=== PATIENT | female | born 1985 | race African-American/Black ===

== ENCOUNTER 2020-09-20 07:34 | Emergency (ER) | payer OTHER, SELFPAY ==
--- NOTE | ~2020-09-20 | XR_ITS ---
EXAMINATION: XR CHEST CLINICAL INFORMATION: Right-sided chest pain COMPARISON: Chest x-ray March 31, 2019 TECHNIQUE: Frontal view of the chest was obtained. FINDINGS: Cardiac silhouette is normal in size. The lungs are well aerated. There is no lobar consolidation. No pleural effusion or pneumothorax. No gross osseous abnormality. XR/XR chest 1V IMPRESSION: No acute pulmonary pathology.
[2020-09-20 07:52] VITALS: BP 109/72; PULSE 70; RESP 16; TEMP 36.6; O2SAT 100; BMI 26.5
--- NOTE | 2020-09-20 08:31 | ECG_ITS ---
Test Reason : RIB PAIN Blood Pressure : / mmHG Vent. Rate : 050 BPM Atrial Rate : 050 BPM P-R Int : 142 ms QRS Dur : 088 ms QT Int : 430 ms P-R-T Axes : 031 057 -07 degrees QTc Int : 392 ms Sinus bradycardia Nonspecific ST and T wave abnormality Abnormal ECG No previous ECGs available Referred By: Edy Horton Electronically Signed By:VIJAY MCMAHAN MD
--- NOTE | 2020-09-20 08:31 | ED_ITS ---
HPI - General Adult General Chief complaint: General Medical Stated complaint: severe rib pain Time Seen by Provider: 09/20/20 08:26 Source: patient Mode of arrival: ambulatory Limitations: no limitations History of Present Illness HPI narrative: this is a 35 years old of female presented to the ED complaining of right-sided pleuritic chest pain for about 10 days Onset (ago): day(s) (10) Location: chest ( right) Radiation: non-radiation Severity: moderate Quality: aching Pain Consistency: constant Exacerbating factors: none Related Data Allergies Allergy/AdvReac Type Severity Reaction Status Date / Time diphenhydramine Allergy Unknown SEIZURE Unverified 12/05/19 18:37 [From BENADRYL] tramadol [TRAMADOL] Allergy Unknown LOCKS UP Unverified 12/05/19 18:37 INSIDES Review of Systems Review of Systems: Yes all other systems are reviewed and are negative Cardiovascular: Cardiovascular: Reports no additional cardiovascular complaints Respiratory: Respiratory: Reports no additional respiratory complaints Gastrointestinal: Gastrointestinal: Reports no additional gastrointestinal complaints PMFSH Past Medical History Surgical History H/O lumpectomy History of cholecystectomy Social History Social History Advance Directives: No Advance Directives Information Provided: No Patient : No Physical Exam Vital Signs: Vital Signs: Last Vital Signs Temp 97.9 F 09/20/20 07:52 Pulse 70 09/20/20 07:52 Resp 16 09/20/20 07:52 BP 109/72 09/20/20 07:52 Pulse Ox 100 09/20/20 07:52 Body Mass Index 26.5 Const: General: cooperative and comfortable Orientation/consciousness: oriented to person, oriented to place, oriented to time and patient oriented x3 HENMT: Head: Yes normal to inspection and Yes No palpable skull fracture pr esent Eyes: General: appearance normal, both eyes and all related structures Periorbital: periorbital findings normal Pupils: Pupils normal by confrontation EOM: EOMs intact bilaterally Neck: Neck: Yes normal visual inspection and Yes full ROM Chest: Chest palpation & inspection: normal inspection of the chest and other ( tenderness in the right lower chest) Resp: Effort & Inspection: normal respiratory effort and able to speak in complete sentences Cardio: Jugular venous distension: no JVD Rate: regular rate Rhythm: regular rhythm Heart sounds: S1 normal heart sound present GI: Inspection: Yes normal to inspection Palpation (GI): Soft to palpation, not firm, nontender and no guarding Skin: Lesions: no lesions Rashes: no rashes Neuro: General: oriented to person, oriented to place, oriented to time, patient oriented x3 and gait normal Extrem: General: Yes normal to inspection Medical Decision Making Lab Data Lab results reviewed: Yes I reviewed the patient's lab results. Result diagrams: 09/20/20 08:41 09/20/20 08:41 Labs: Lab Results 09/20/20 09/20/20 09/20/20 Range/Units 08:41 08:41 08:41 WBC 5.0 (4.8-10.8) X10*3/uL RBC 4.10 L (4.20-5.50) X10*6/uL Hgb 12.3 (12.0-16.0) g/dl Hct 36.9 L (37-47) % MCV 90.0 (80-98) fL MCH 30.0 (27.0-33.0) pg MCHC 33.3 (31.0-35.0) g/dl RDW 11.9 (11.0-16.0) % Plt Count 322 (160-400) X10*3/uL MPV 8.8 L (9.4-12.3) fL Immature Gran % (Auto) 0.0 (0.0-0.4) % Neut % (Auto) 37.1 L (45-73) % Lymph % (Auto) 52.3 H (20-40) % [place] % (Auto) 7.6 (2-11) % Eos % (Auto) 2.4 (0-4) % Baso % (Auto) 0.6 (0-2) % Lymph # (Auto) 2.6 (1.2-4.9) X10*3/uL [place] # (Auto) 0.4 (0.1-1.2) X10*3/uL Eos # (Auto) 0.1 (0.0-0.4) X10*3/uL Baso # (Auto) 0.0 (0.0-0.2) X10*3/uL Abs Immat Gran (auto) 0.00 (0.00-0.03) X10*3/uL Absolute Neuts (auto) 1.9 L (2.0-8.3) X10*3/uL Absolute Nucleated RBC 0.000 (0.0-0.012) X10*3/uL Nucleated RBC % (auto) 0.0 (0.0-0.2) /100WBC D-Dimer < 200 NG/ML Sodium 137 (135-145) mmol/L Potassium 4.8 (3.3-5.1) mmol/L Chloride 107 (96-108) mmol/L Carbon Dioxide 23 (22-29) mmol/L Anion Gap 12 (12-20) BUN 12 (9-16) mg/dL Creatinine 0.82 (0.5-1.4) mg/dL Estim Creat Clear Calc 90.4 Estimated GFR > 60 Random Glucose 90 (60-115) mg/dL Calcium 8.8 (8.4-10.2) mg/dL Total Bilirubin 0.2 (0.0-1.0) mg/dL AST 17 (5-31) U/L ALT 12 (0-31) U/L Alkaline Phosphatase 69 (39-117) U/L Troponin I High Sens (<3.5-17.0) ng/L Total Protein 6.7 (6.5-8.0) g/dL Albumin 3.8 (3.5-5.0) g/dL Beta HCG, Quant < 2 mIU/mL 09/20/20 Range/Units 08:41 WBC (4.8-10.8) X10*3/uL RBC (4.20-5.50) X10*6/uL Hgb (12.0-16.0) g/dl Hct (37-47) % MCV (80-98) fL MCH (27.0-33.0) pg MCHC (31.0-35.0) g/dl RDW (11.0-16.0) % Plt Count (160-400) X10*3/uL MPV (9.4-12.3) fL Immature Gran % (Auto) (0.0-0.4) % Neut % (Auto) (45-73) % Lymph % (Auto) (20-40) % [place] % (Auto) (2-11) % Eos % (Auto) (0-4) % Baso % (Auto) (0-2) % Lymph # (Auto) (1.2-4.9) X10*3/uL [place] # (Auto) (0.1-1.2) X10*3/uL Eos # (Auto) (0.0-0.4) X10*3/uL Baso # (Auto) (0.0-0.2) X10*3/uL Abs Immat Gran (auto) (0.00-0.03) X10*3/uL Absolute Neuts (auto) (2.0-8.3) X10*3/uL Absolute Nucleated RBC (0.0-0.012) X10*3/uL Nucleated RBC % (auto) (0.0-0.2) /100WBC D-Dimer NG/ML Sodium (135-145) mmol/L Potassium (3.3-5.1) mmol/L Chloride (96-108) mmol/L Carbon Dioxide (22-29) mmol/L Anion Gap (12-20) BUN (9-16) mg/dL Creatinine (0.5-1.4) mg/dL Estim Creat Clear Calc Estimated GFR Random Glucose (60-115) mg/dL Calcium (8.4-10.2) mg/dL Total Bilirubin (0.0-1.0) mg/dL AST (5-31) U/L ALT (0-31) U/L Alkaline Phosphatase (39-117) U/L Troponin I High Sens < 3.5 (<3.5-17.0) ng/L Total Protein (6.5-8.0) g/dL Albumin (3.5-5.0) g/dL Beta HCG, Quant mIU/mL Imaging Data Chest x-ray: Radiologist's impression: EXAMINATION: XR CHEST CLINICAL INFORMATION: Right-sided chest pain COMPARISON: Chest x-ray March 31, 2019 TECHNIQUE: Frontal view of the chest was obtained. FINDINGS: Cardiac silhouette is normal in size. The lungs are well aerated. There is no lobar consolidation. No pleural effusion or pneumothorax. No gross osseous abnormality. XR/XR chest 1V IMPRESSION: No acute pulmonary pathology. ECG Data Attestation: I personally reviewed and interpreted this ECG as follows: Interpretation: NORMAL SINUS RHYTHM RATE OF 50 NO ISCHEMIC CHANGES Discharge Plan Discharge Clinical Impression: Chest wall pain Patient Disposition: Home, Self-Care Instructions: Chest Wall Pain (ED) Additional Instructions: FOLLOW-UP WITH YOUR PRIMARY CARE PHYSICIAN CONTINUE THE IBUPROFEN EVERY 8 HOURS NEEDED, YOU CHEST X-RAY WAS NORMAL OF THE BLOOD WORK AND ELECTROCARDIOGRAM WERE NORMAL
[2020-09-20] MEDS: Ketorolac Tromethamine 60 MG/2 ML VIAL IM (08:42)
[2020-09-20 08:45] LABS: MANUAL DIFF FLAG NO
[2020-09-20 08:46] LABS: Basophils Percent Auto 0.6 % (0-2); Eosinophils Absolute Auto 0.1 X10*3/uL (0.0-0.4); Eosinophils Percent Auto 2.4 % (0-4); Hematocrit 36.9 % (37-47); Hemoglobin 12.3 g/dl (12.0-16.0); Lymphocytes Absolute Auto 2.6 X10*3/uL (1.2-4.9); Lymphocytes Percent Auto 52.3 % (20-40); Mean Corpuscular HGB Conc 33.3 g/dl (31.0-35.0); Mean Platelet Volume 8.8 fL (9.4-12.3); Monocytes Absolute Auto 0.4 X10*3/uL (0.1-1.2); Monocytes Percent Auto 7.6 % (2-11); Neutrophils Absolute Auto 1.9 X10*3/uL (2.0-8.3); Neutrophils Percent Auto 37.1 % (45-73); Platelet Count 322 X10*3/uL (160-400); Red Cell Distribution Width 11.9 % (11.0-16.0)
[2020-09-20 09:11] LABS: D Dimer < 200 NG/ML
[2020-09-20 09:16] LABS: Alanine Aminotransferase 12 U/L (0-31); Albumin Level 3.8 g/dL (3.5-5.0); Alkaline Phosphatase 69 U/L (39-117); Aspartate Amino Transferase 17 U/L (5-31); Bilirubin Total 0.2 mg/dL (0.0-1.0); Blood Urea Nitrogen 12 mg/dL (9-16); Calcium 8.8 mg/dL (8.4-10.2); Creatinine Clr Calc Pharmacy 90.4; Estimated Glomerular Filt Rate > 60; Glucose Random 90 mg/dL (60-115); Total Protein 6.7 g/dL (6.5-8.0)
[2020-09-20 09:18] LABS: Troponin-I High Sensitivity < 3.5 ng/L (<3.5-17.0)
[2020-09-20 09:21] LABS: HCG Quantitative < 2 mIU/mL
[2020-09-20 09:26] LABS: Anion Gap 12 (12-20); Carbon Dioxide 23 mmol/L (22-29); Chloride 107 mmol/L (96-108); Potassium 4.8 mmol/L (3.3-5.1); Sodium 137 mmol/L (135-145)
== END 2020-09-20 09:39 | disposition home or self-care (01) ==
PROVIDERS: Emergency Provider Emergency Medicine
DX: R07.89 Other chest pain (principal)
CPT/HCPCS: 36415; 71045; 80053; 84484; 84702; 85025; 85379; 93005; 96372; 99284; J1885

== ENCOUNTER 2022-05-09 07:26 | Emergency (ER) | payer SELFPAY ==
--- NOTE | ~2022-05-09 | US_ITS ---
EXAMINATION: US PELVIS CLINICAL INFORMATION: Right suprapubic pain. Question TOA versus torsion COMPARISON: None TECHNIQUE: Ultrasound of the pelvis is performed using both transabdominal and transvaginal transducers along with Doppler. Transvaginal imaging is performed due to inadequate visualization transabdominally. FINDINGS: Uterus: The uterus is anteverted and measures 8.2 x 4.5 x 5.3 cm. No cervical abnormality appreciated. The double wall endometrial thickness is 5 mm. Within the endometrium in the body of the uterus there is question of an echogenic 9 x 5 x 6 mm structure with same echogenicity of the endometrium and difficult to truly tell if this is a polyp or artifact with visualization of the endometrium. No history of menorrhagia is given. The uterus is smooth in contour and has normal myometrial echogenicity. No visible fibroid. Adnexa: Both ovaries are visualized. There is normal color flow to the adnexa. There is no ovarian torsion. There is no pelvic ascites or fluid collection. Right ovary measures 3.3 x 1.3 x 1.6 cm. Volume 3.6 mL. There is a simple appearing cyst present measuring 1.8 cm in largest dimension for which follow-up is not required. No adnexal abnormality is appreciated with no evidence of tubo-ovarian abscess. Left ovary measures 2.6 x 1.6 x 1.5 cm. Volume of 3.3 mL. No evidence of tubo-ovarian abscess. No adnexal abnormality appreciated. US/US pelvic and transvaginal IMPRESSION: No evidence of ovarian torsion or tubo-ovarian abscess. Question possible 9 mm endometrial polyp versus artifact.
--- NOTE | ~2022-05-09 | US_ITS ---
EXAMINATION: US PELVIS CLINICAL INFORMATION: Right suprapubic pain. Question TOA versus torsion COMPARISON: None TECHNIQUE: Ultrasound of the pelvis is performed using both transabdominal and transvaginal transducers along with Doppler. Transvaginal imaging is performed due to inadequate visualization transabdominally. FINDINGS: Uterus: The uterus is anteverted and measures 8.2 x 4.5 x 5.3 cm. No cervical abnormality appreciated. The double wall endometrial thickness is 5 mm. Within the endometrium in the body of the uterus there is question of an echogenic 9 x 5 x 6 mm structure with same echogenicity of the endometrium and difficult to truly tell if this is a polyp or artifact with visualization of the endometrium. No history of menorrhagia is given. The uterus is smooth in contour and has normal myometrial echogenicity. No visible fibroid. Adnexa: Both ovaries are visualized. There is normal color flow to the adnexa. There is no ovarian torsion. There is no pelvic ascites or fluid collection. Right ovary measures 3.3 x 1.3 x 1.6 cm. Volume 3.6 mL. There is a simple appearing cyst present measuring 1.8 cm in largest dimension for which follow-up is not required. No adnexal abnormality is appreciated with no evidence of tubo-ovarian abscess. Left ovary measures 2.6 x 1.6 x 1.5 cm. Volume of 3.3 mL. No evidence of tubo-ovarian abscess. No adnexal abnormality appreciated. US/US pelvic ovarian doppler IMPRESSION: No evidence of ovarian torsion or tubo-ovarian abscess. Question possible 9 mm endometrial polyp versus artifact.
[2022-05-09 07:46] VITALS: BP 112/77; PULSE 77; RESP 18; TEMP 36.2; O2SAT 100; BMI 24.3
[2022-05-09 08:00] LABS: Appearance Urine Clear; Color Urine Yellow; Glucose Urine UA Negative (Negative); Leukocyte Esterase Urine Trace (Negative); Nitrite Urine Negative (Negative); Specific Gravity - Urine >= 1.030 (1.005-1.025); UMIC TRIGGER UACC YES; Urine Blood Negative (Negative); Urine Ketones Trace mg/dL (Negative); Urine Protein Negative (Neg-Trace)
[2022-05-09 08:10] LABS: Bacteria Urine 1+ (None Seen); Hyaline Casts Urine 0-2 /LPF (0-2); RBC Urine 0-2 /HPF (0-2); WBC Urine 0-5 /HPF (0-5)
--- NOTE | 2022-05-09 08:56 | ED_ITS ---
HPI - Female Genitourinary General Chief complaint: Urogenital-Female Stated complaint: UTI? Time Seen by Provider: 05/09/22 08:53 Source: patient Mode of arrival: ambulatory History of Present Illness HPI Narrative: 36-year-old female with a past medical history of ovarian cyst presenting to the ED complaining of right lower abdominal pain times 3-4 days with associated urinary pressure/dysuria, & frequency. Reports pain is nonradiating. Denies fever, chills, nausea vomiting, abnormal vaginal discharge/bleeding, flank pain MD elicited complaint: dysuria and UTI Onset (ago): day(s) Related Data Allergies Allergy/AdvReac Type Severity Reaction Status Date / Time diphenhydramine Allergy Unknown SEIZURE Verified 05/09/22 07:48 [From BENADRYL] tramadol [TRAMADOL] Allergy Unknown LOCKS UP Verified 05/09/22 07:48 INSIDES Review of Systems Review of Systems: Constitutional: No Fever, No Chills, No Fatigue, No Malaise ENT/Mouth: No Ear Pain, No Nasal Congestion, No sore throat, No Rhinorrhea, No Swallowing Difficulty Eyes: No Eye Pain, No Swelling, No Redness, No Vision Changes Cardiovascular: No Chest Pain, No SOB, No Edema, No Palpitations Respiratory: No Cough, No Sputum, No Dyspnea Gastrointestinal: No Nausea, No Vomiting, No Diarrhea, No Constipation, + Abdominal pain Genitourinary: No irregular bleeding, + Dysuria, + Urinary Frequency, No Hematuria, No Flank Pain, No Urinary Flow Changes, No Hesitancy Musculoskeletal: No joint pain, No Myalgias, No Joint Swelling Skin: No Skin Lesions, No rash Neuro: No Weakness, No Numbness,No Headache Yes all other systems are reviewed and are negative Constitutional: Constitutional: Reports as per [facility] Past Medical History Attestation statement: The following information was validated with the patient. Surgical History H/O lumpectomy History of cholecystectomy Social History Social History Alcohol intake: current Alcohol intake frequency: holidays/special occasions on ly Smoked in Last 30 Days: No Use of substances other than those prescribed or required for medical reasons: Yes Substance Use Type: Marijuana Substance Use Frequency: Occasionally Advance Directives: No Advance Directives Information Provided: No Physical Exam Vital Signs: Vital Signs: Last Vital Signs Temp 97.1 F 05/09/22 10:40 Pulse 57 05/09/22 10:40 Resp 14 05/09/22 10:40 BP 118/66 05/09/22 10:40 Pulse Ox 99 05/09/22 10:40 O2 Del Method 05/09/22 10:40 BMI result Body Mass Index 24.3 Const: General: cooperative, healthy appearing and no acute distress Orientation/consciousness: patient oriented x3 Limitations: no limitations HEENT: Head: Yes normal to inspection and Yes atraumatic Ears: hearing grossly normal bilaterally General nose exam: Normal external nose present Face and sinus: Yes normal facial exam Eyes: General: appearance normal, both eyes and all related structures EOM: EOMs intact bilaterally Neck: Neck: Yes normal visual inspection and Yes no meningeal signs Resp: Effort & Inspection: normal respiratory effort and no respiratory distress Auscultation: clear to auscultation bilaterally Cardio: Rate: regular rate Heart sounds: S1 normal heart sound present and S2 normal heart sound present GI: Inspection: Yes normal to inspection Palpation (GI): Soft to palpation, Tenderness to palpation present (GI) suprapubicly (right); with no rebound tenderness, no guarding and not rigid : General: Yes no CVA tenderness OB/external & speculum: Deferred OB/ external & speculum exam Back/Spine/Pelvis: Back: no CVA tenderness Skin: Rashes: no rashes Wounds: no wounds Neuro: General: patient oriented x3, tone normal and no meningeal signs Gait exam (Neuro): Normal gait present Extrem: General: Yes normal to inspection Course Course Course Narrative: -1125--labs unremarkable. UA negative. US pelvic and transvaginal IMPRESSION: No evidence of ovarian torsion or tubo-ovarian abscess. ? Question possible 9 mm endometrial polyp versus artifact. >> on re-evaluation patient reports symptomatic improvement. Results discussed with patient including worrisome signs and symptoms and strict return precautions, and when to return to the emergency department. They verbalized understanding and feel safe for discharge at this time. Medications Administered Discontinued Medications Generic Name Dose Route Start Last Admin Trade Name Freq PRN Reason Stop Dose Admin Ketorolac Tromethamine 30 mg 05/09/22 10:26 05/09/22 10:33 Ketorolac Tromethamine 30 Mg/Ml Vial IM 05/09/22 10:27 30 mg ONCE ONE Administration Medical Decision Making Medical Decision Making [facility] Narrative: 36-year-old female with a past medical history of ovarian cyst presenting to the ED complaining of right lower abdominal pain times 3-4 days with associated urinary pressure/dysuria, & frequency. On exam vital signs stable, NAD, nontoxic appearing, abdomen soft with right-sided suprapubic tenderness, no rebound or guarding, no CVA tenderness. Concern for UTI vs ovarian cyst. Ovarian torsion/TOA on differential however lower. Lower suspicion for appendicitis with location of pain. Unlikely renal stone/pyelo Plan: Labs, UA, pelvic ultrasound, re-evaluate Please refer to course for remaining clinical decision making, interpretation of labs/imaging results, and discussions with consultants and/or family members. Differential Diagnosis Differential Diagnoses: The differential diagnosis associated with the presentation includes as above Lab Data [facility] Lab Attestation statement: I reviewed the patient's lab results. 05/09/22 09:13 05/09/22 09:13 Labs: Lab Results 05/09/22 05/09/22 05/09/22 Range/Units 07:54 09:13 09:13 WBC 4.7 L (4.8-10.8) X10*3/uL RBC 4.42 (4.20-5.50) X10*6/uL Hgb 13.1 (12.0-16.0) g/dl Hct 39.0 (37.0-47.0) % MCV 88.2 (80.0-98.0) fL MCH 29.6 (27.0-33.0) pg MCHC 33.6 (31.0-35.0) g/dl RDW 12.0 (11.0-16.0) % Plt Count 366 (160-400) X10*3/uL MPV 8.8 L (9.4-12.3) fL Immature Gran % (Auto) 0.2 (0.0-0.4) % Neut % (Auto) 34.4 L (45-73) % Lymph % (Auto) 50.8 H (20-40) % [place] % (Auto) 9.0 (2-11) % Eos % (Auto) 4.5 H (0-4) % Baso % (Auto) 1.1 (0-2) % Lymph # (Auto) 2.4 (1.2-4.9) X10*3/uL [place] # (Auto) 0.4 (0.1-1.2) X10*3/uL Eos # (Auto) 0.2 (0.0-0.4) X10*3/uL Baso # (Auto) 0.1 (0.0-0.2) X10*3/uL Abs Immat Gran (auto) 0.01 (0.00-0.03) X10*3/uL Absolute Neuts (auto) 1.6 L (2.0-8.3) x10*3/uL Absolute Nucleated RBC 0.000 (0.0-0.012) X10*3/uL Nucleated RBC % (auto) 0.0 (0.0-0.2) /100WBC Sodium 138 (135-145) mmol/L Potassium 4.0 (3.3-5.1) mmol/L Chloride 103 (96-108) mmol/L Carbon Dioxide 26 (22-29) mmol/L Anion Gap 13 (12-20) BUN 12 (9-16) mg/dL Creatinine 0.82 (0.5-1.4) mg/dL Estim Creat Clear Calc 79.9 Estimated GFR > 60 Random Glucose 96 (60-115) mg/dL Calcium 9.6 D (8.4-10.2) mg/dL Total Bilirubin 0.5 (0.0-1.0) mg/dL Direct Bilirubin < 0.2 (0.0-0.5) mg/dL AST 15 (5-31) U/L ALT 12 (0-31) U/L Alkaline Phosphatase 56 (39-117) U/L Total Protein 7.1 (6.5-8.0) g/dL Albumin 4.1 (3.5-5.0) g/dL Lipase 33 (8-78) U/L Beta HCG, Quant < 2 mIU/mL Urine Color Yellow Urine Appearance Clear Urine pH 6.0 (5.0-9.0) Ur Specific [place] >= 1.030 H (1.005-1.025) Urine Protein Negative (Neg-Trace) mg/dL Urine Glucose (UA) Negative (Negative) mg/dL Urine Ketones Trace (Negative) mg/dL Urine Blood Negative (Negative) Urine Nitrite Negative (Negative) Ur Leukocyte Esterase Trace H (Negative) Urine RBC 0-2 (0-2) /HPF Urine WBC 0-5 (0-5) /HPF Ur Squamous Epith Cells 6-10 (0-2) /HPF Urine Bacteria 1+ (None Seen) Hyaline Casts 0-2 (0-2) /LPF Radiology Impression Discussion of test interpretation with radiology: I have reviewed the radiologist's reading. Discharge Plan Discharge Clinical Impression: Abdominal pain, suprapubic, Ovarian cyst, Endometrial polyp Patient Disposition: Home, Self-Care Instructions: Abdominal Pain (ED), Endometrial Polyps (DC) Additional Instructions: Your blood work and urine were reassuring. Her ultrasound shows a small right ovarian cyst as well as a possible endometrial polyp. Practice a bland diet If her symptoms persist or worsen, pain becomes unbearable, and nausea/vomiting or fever return to the ED Referrals: [facility] [Provider Group] Kunal Nuno MD [Emergency Provider] - Interventions: ED Discharge Assessment Last Done: 05/09/22 11:53 Discharge Date/Time: 05/09/22 11:53
[2022-05-09 09:06] VITALS: BP 101/68; PULSE 65; RESP 16; TEMP 36.4; O2SAT 100
--- NOTE | 2022-05-09 09:09 | PC.NURSE ---
pt AOx3, vss. reports RLQ pressure/pain 09/26. will continue to monitor.
[2022-05-09 09:16] LABS: MANUAL DIFF FLAG NO
[2022-05-09 09:18] LABS: Basophils Absolute Auto 0.1 X10*3/uL (0.0-0.2); Basophils Percent Auto 1.1 % (0-2); Eosinophils Absolute Auto 0.2 X10*3/uL (0.0-0.4); Eosinophils Percent Auto 4.5 % (0-4); Hemoglobin 13.1 g/dl (12.0-16.0); Imm Gran Abs Auto 0.01 X10*3/uL (0.00-0.03); Imm Gran Pct Auto 0.2 % (0.0-0.4); Lymphocytes Absolute Auto 2.4 X10*3/uL (1.2-4.9); Lymphocytes Percent Auto 50.8 % (20-40); Mean Corpuscular HGB Conc 33.6 g/dl (31.0-35.0); Mean Corpuscular Hemoglobin 29.6 pg (27.0-33.0); Mean Corpuscular Volume 88.2 fL (80.0-98.0); Mean Platelet Volume 8.8 fL (9.4-12.3); Monocytes Absolute Auto 0.4 X10*3/uL (0.1-1.2); Neutrophils Absolute Auto 1.6 x10*3/uL (2.0-8.3); Neutrophils Percent Auto 34.4 % (45-73); Platelet Count 366 X10*3/uL (160-400); Red Blood Count 4.42 X10*6/uL (4.20-5.50); White Blood Count 4.7 X10*3/uL (4.8-10.8)
--- NOTE | 2022-05-09 09:23 | PC.NURSE ---
pt previously had a urine obtained, provider was notified and the new urine order does not need to be collected.
[2022-05-09 09:42] LABS: Alanine Aminotransferase 12 U/L (0-31); Albumin Level 4.1 g/dL (3.5-5.0); Alkaline Phosphatase 56 U/L (39-117); Anion Gap 13 (12-20); Aspartate Amino Transferase 15 U/L (5-31); Bilirubin Direct < 0.2 mg/dL (0.0-0.5); Bilirubin Total 0.5 mg/dL (0.0-1.0); Blood Urea Nitrogen 12 mg/dL (9-16); Calcium 9.6 mg/dL (8.4-10.2); Carbon Dioxide 26 mmol/L (22-29); Chloride 103 mmol/L (96-108); Creatinine Clr Calc Pharmacy 79.9; Estimated Glomerular Filt Rate > 60; Glucose Random 96 mg/dL (60-115); HCG Quantitative < 2 mIU/mL; Lipase 33 U/L (8-78); Sodium 138 mmol/L (135-145); Total Protein 7.1 g/dL (6.5-8.0)
--- NOTE | 2022-05-09 10:20 | PC.NURSE ---
pt c/o 08/27 pain provider notified will medicate when order put in.
[2022-05-09] MEDS: Ketorolac Tromethamine 30 MG/ML VIAL IM (10:33)
--- NOTE | 2022-05-09 10:36 | PC.NURSE ---
pt medicated per order
[2022-05-09 10:40] VITALS: BP 118/66; PULSE 57; RESP 14; TEMP 36.2; O2SAT 99
== END 2022-05-09 11:53 | disposition home or self-care (01) ==
PROVIDERS: Physician Assistant; Emergency Provider Emergency Medicine
DX: R10.31 Right lower quadrant pain (principal); R30.0 Dysuria; N84.0 Polyp of corpus uteri; N83.201 Unspecified ovarian cyst, right side; R10.2 Pelvic and perineal pain; Z79.899 Other long term (current) drug therapy
CPT/HCPCS: 36415; 76830; 76856; 80048; 80076; 81001; 81003; 83690; 84702; 85025; 93975; 96372; 99284; J1885

== ENCOUNTER 2022-05-22 19:18 | Emergency (ER) | payer SELFPAY ==
--- NOTE | ~2022-05-22 | CT_ITS ---
EXAMINATION: CT ABDOMEN AND PELVIS WITH CONTRAST CLINICAL INFORMATION: Right lower quadrant/inguinal pain. COMPARISON: Pelvic ultrasound earlier today. TECHNIQUE: Multidetector volumetric images were obtained from the superior aspect of the liver through the pubic symphysis following administration 85 mL of Omnipaque 350 intravenous contrast. Sagittal and coronal reformatted images were obtained on the technologist's workstation. Oral contrast: No This CT examination was performed using dose optimization techniques as appropriate, variously including the following: *Automated exposure control *Adjustment of mA and/or kV according to patient size (this includes techniques or standardized protocols for targeted exams where dose is matched to indication/reason for exam; i.e. extremities or head) *Use of iterative reconstruction technique DLP: 373 mGy-cm FINDINGS: LUNG BASES: No focal consolidation or pleural effusion. LIVER, GALLBLADDER, AND BILIARY TREE: The liver is normal in size, shape, and attenuation. No focal hepatic lesion or biliary ductal dilatation is present. Cholecystectomy. PANCREAS: Unremarkable. SPLEEN: Unremarkable. ADRENAL GLANDS: Unremarkable. KIDNEYS AND URETERS: The kidneys are normal in size, shape, and attenuation. No hydronephrosis, hydroureter, or calculi seen. No perinephric stranding. BLADDER: Underdistended limiting its evaluation. GASTROINTESTINAL TRACT: Nonspecific gastric distention. Is abnormal wall thickening of the proximal jejunum (images 23 through 35, series 3). The remaining of the small bowel is under distended limiting assessment of wall thickening. Normal appendix (5:28). No pericolonic inflammatory changes or evidence of bowel obstruction. ABDOMINAL WALL: No significant hernia is appreciated. LYMPH NODES: Evaluation of lymph nodes is limited due to decrease intra-abdominal fat. However, accounting for this limitations, no bulky lymphadenopathy is noted. VASCULAR: Unremarkable. PELVIC VISCERA: There is a 1.7 cm corpus luteal cyst in the right ovary (3:58), for which no imaging follow-up is indicated. Trace amount of free fluid in the cul-de-sac is likely physiologic. OSSEOUS STRUCTURES: No acute or aggressive appearing osseous abnormalities. CT/CT abdomen pelvis w IV con IMPRESSION: 1. Abnormal wall thickening of the proximal jejunum suggesting acute enteritis in the appropriate clinical context. 2. Nonspecific gastric distention, possibly related with postprandial state. 3. Normal appendix. 4. No pericolonic inflammatory changes or evidence of bowel obstruction.
--- NOTE | ~2022-05-22 | US_ITS ---
EXAMINATION: US PELVIS CLINICAL INFORMATION: Rule out torsion, history of cysts. LMP 04/27/2022. COMPARISON: Pelvic ultrasound to 2022. TECHNIQUE: Ultrasound of the pelvis is performed using both transabdominal and transvaginal transducers along with Doppler. Transvaginal imaging is performed due to inadequate visualization transabdominally. FINDINGS: Anteverted uterus measuring 7.6 x 4.7 x 5.6 cm. No discrete uterine lesion. The endometrium measures 0.9 cm in thickness without focal abnormality. The ovaries are normal in morphology with preserved flow on color and spectral Doppler at the moment of this examination. The right ovary measures 3.5 x 1.6 x 2.5 cm (7.3 mL) and the left ovary measures 1.8 x 1.8 x 2.2 cm (3.7 mL). Differences in size are likely related with the presence of a dominant follicles in the right ovary measuring 1.2 x 0.9 x 0.9 cm. No free fluid. US/US pelvic ovarian doppler IMPRESSION: No acute sonographic abnormality.
--- NOTE | ~2022-05-22 | US_ITS ---
EXAMINATION: US PELVIS CLINICAL INFORMATION: Rule out torsion, history of cysts. LMP 04/27/2022. COMPARISON: Pelvic ultrasound to 2022. TECHNIQUE: Ultrasound of the pelvis is performed using both transabdominal and transvaginal transducers along with Doppler. Transvaginal imaging is performed due to inadequate visualization transabdominally. FINDINGS: Anteverted uterus measuring 7.6 x 4.7 x 5.6 cm. No discrete uterine lesion. The endometrium measures 0.9 cm in thickness without focal abnormality. The ovaries are normal in morphology with preserved flow on color and spectral Doppler at the moment of this examination. The right ovary measures 3.5 x 1.6 x 2.5 cm (7.3 mL) and the left ovary measures 1.8 x 1.8 x 2.2 cm (3.7 mL). Differences in size are likely related with the presence of a dominant follicles in the right ovary measuring 1.2 x 0.9 x 0.9 cm. No free fluid. US/US pelvic and transvaginal IMPRESSION: No acute sonographic abnormality.
--- NOTE | 2022-05-22 19:21 | ED.ABDPAIN ---
HPI - Abdominal Pain General Chief Complaint: Abdominal Pain <Sandhya Hollis NP - Last Filed: 05/22/22 19:25> Stated Complaint: right side abd pain <Sandhya Hollis NP - Last Filed: 05/22/22 19:25> Time Seen by Provider: 05/22/22 21:05 <Sandhya Hollis NP - Last Filed: 05/22/22 19:25> History of Present Illness HPI narrative: Three days of pain, no fevers or chills or nausea or vomiting. Has had before and pain is worse with coughing. <Betty Krishna MD - Last Filed: 05/22/22 22:56> Related Data Allergies/Adverse Reactions: Allergies Allergy/AdvReac Type Severity Reaction Status Date / Time diphenhydramine Allergy Unknown SEIZURE Verified 05/09/22 07:48 [From BENADRYL] tramadol [TRAMADOL] Allergy Unknown LOCKS UP Verified 05/09/22 07:48 INSIDES <Sandhya Hollis NP - Last Filed: 05/22/22 19:25> Review of Systems Review of Systems Pertinent positives and negatives as stated in HPI <Betty Krishna MD - Last Filed: 05/22/22 22:56> PMFSH Past Medical History Source: nursing notes reviewed <Betty Krishna MD - Last Filed: 05/22/22 22:56> Surgical History: Surgical History H/O lumpectomy History of cholecystectomy <Sandhya Hollis NP - Last Filed: 05/22/22 19:25> Social History Social History: Social History Alcohol intake: current Alcohol intake frequency: holidays/special occasions only Substance Use Type: Marijuana Advance Directives: No Advance Directives Information Provided: No <Sandhya Hollis NP - Last Filed: 05/22/22 19:25> Physical Exam ED Vital Signs: Vital Signs - 24 hr 05/22/22 19:25 05/22/22 22:00 Temperature 97.7 F 98.6 F Pulse Rate 83 74 Respiratory Rate 16 18 Blood Pressure 106/83 94/61 Pulse Oximetry 96 100 Oxygen Delivery Method Room Air BMI result Body Mass Index 23.0 <Sandhya Hollis NP - Last Filed: 05/22/22 19:25> Vital Signs - 24 hr 05/22/22 19:25 05/22/22 22:00 Temperature 97.7 F 98.6 F Pulse Rate 83 74 Respiratory Rate 16 18 Blood Pressure 106/83 94/61 Pulse Oximetry 96 100 Oxygen Delivery Method Room Air BMI result Body Mass Index 23.0 VITAL SIGNS: Reviewed. GENERAL: Well developed, well nourished, in no acute distress. HEAD: Normocephalic/atraumatic EYES: PERRLA, EOMI EARS: Ext canals without abnormality OROPHARYNX: no oral lesions noted, posterior pharynx clear LUNGS: Normal breath sounds. No adventitious sounds or accessory muscle use. SpO2<96> CARDIOVASCULAR: Regular rate and rhythm without noted murmurs ABDOMEN: Soft, tenderness on palpation over superior aspect of right inguinal area, no obvious hernia, non-distended with bowel sounds. MUSCULOSKELETAL: No tenderness, deformities, or effusions noted on gross inspection. EXTREMITIES: No cyanosis, clubbing or edema. SKIN: Inspection of the skin reveals no rashes NEUROLOGIC: Alert and oriented x 4. Strength and sensation to light touch were grossly intact x 4. <Betty Krishna MD - Last Filed: 05/22/22 22:56> Course Course Course Narrative: This is a rapid medical exam. Deferred additional HPI, ROS, PE to primary provider. 36 yo female s/p myles here with complaints of increasing right pelvic pain today with nausea. No urinary symptoms, fevers, chillls, vomiting, diarrhea, constipation. Patient reports seen here in April and diagnosed with right ovarian cyst. LMP 1 month ago (04/28). Will obtain labs, UA, CT NG, ur preg, covid screen, pelvic US. VSS <Sandhya Hollis NP - Last Filed: 05/22/22 19:25> Medical Decision Making Medical Decision Making MDM Narrative: 36-year-old female with history and clinical presentation after review of all investigations my interpretation is patient may be suffering from hernia, otherwise, there are no acute findings to suggest ectopic/ovarian torsion/UTI/renal colic and history is not consistent with appendicitis. My interpretation is in agreement with radiology's impression of the CT scan, it demonstrates an area of inflammation on the jejunum, all results discussed with patient at bedside she was instructed to use combination analgesics and understands that she will be provided with a referral to follow-up with gastroenterology as this is her 2nd episode. She is otherwise hemodynamically stable and will be discharged home. <Betty Krishna MD - Last Filed: 05/22/22 22:56> Differential Diagnosis Please see the discussion above <Betty Krishna MD - Last Filed: 05/22/22 22:56> Lab Data Please see the discussion above <Betty Krishna MD - Last Filed: 05/22/22 22:56> Result Diagrams: 05/22/22 19:44 05/22/22 19:44 <Sandhya Hollis NP - Last Filed: 05/22/22 19:25> Labs: Lab Results 05/22/22 05/22/22 05/22/22 Range/Units 19:44 19:44 19:44 WBC 7.5 (4.8-10.8) X10*3/uL RBC 4.51 (4.20-5.50) X10*6/uL Hgb 13.3 (12.0-16.0) g/dl Hct 39.5 (37.0-47.0) % MCV 87.6 (80.0-98.0) fL MCH 29.5 (27.0-33.0) pg MCHC 33.7 (31.0-35.0) g/dl RDW 12.0 (11.0-16.0) % Plt Count 362 (160-400) X10*3/uL MPV 9.2 L (9.4-12.3) fL Immature Gran % (Auto) 0.1 (0.0-0.4) % Neut % (Auto) 28.1 L (45-73) % Lymph % (Auto) 58.5 H (20-40) % [place] % (Auto) 5.6 (2-11) % Eos % (Auto) 6.8 H (0-4) % Baso % (Auto) 0.9 (0-2) % Lymph # (Auto) 4.4 (1.2-4.9) X10*3/uL [place] # (Auto) 0.4 (0.1-1.2) X10*3/uL Eos # (Auto) 0.5 H (0.0-0.4) X10*3/uL Baso # (Auto) 0.1 (0.0-0.2) X10*3/uL Abs Immat Gran (auto) 0.01 (0.00-0.03) X10*3/uL Absolute Neuts (auto) 2.1 (2.0-8.3) x10*3/uL Absolute Nucleated RBC 0.000 (0.0-0.012) X10*3/uL Nucleated RBC % (auto) 0.0 (0.0-0.2) /100WBC Sodium 141 (135-145) mmol/L Potassium 3.9 (3.3-5.1) mmol/L Chloride 107 (96-108) mmol/L Carbon Dioxide 26 (22-29) mmol/L Anion Gap 12 (12-20) BUN 8 L (9-16) mg/dL Creatinine 0.81 (0.5-1.4) mg/dL Estim Creat Clear Calc 80.9 Estimated GFR > 60 Random Glucose 100 (60-115) mg/dL Calcium 8.6 D (8.4-10.2) mg/dL Urine Color Urine Appearance Urine pH (5.0-9.0) Ur Specific [place] (1.005-1.025) Urine Protein (Neg-Trace) mg/dL Urine Glucose (UA) (Negative) mg/dL Urine Ketones (Negative) mg/dL Urine Blood (Negative) Urine Nitrite (Negative) Ur Leukocyte Esterase (Negative) Urine Test (NEGATIVE) COVID-19 ([facility]) Negative (Negative) COVID-19 Clin Com See Note 05/22/22 05/22/22 Range/Units 19:44 19:44 WBC (4.8-10.8) X10*3/uL RBC (4.20-5.50) X10*6/uL Hgb (12.0-16.0) g/dl Hct (37.0-47.0) % MCV (80.0-98.0) fL MCH (27.0-33.0) pg MCHC (31.0-35.0) g/dl RDW (11.0-16.0) % Plt Count (160-400) X10*3/uL MPV (9.4-12.3) fL Immature Gran % (Auto) (0.0-0.4) % Neut % (Auto) (45-73) % Lymph % (Auto) (20-40) % [place] % (Auto) (2-11) % Eos % (Auto) (0-4) % Baso % (Auto) (0-2) % Lymph # (Auto) (1.2-4.9) X10*3/uL [place] # (Auto) (0.1-1.2) X10*3/uL Eos # (Auto) (0.0-0.4) X10*3/uL Baso # (Auto) (0.0-0.2) X10*3/uL Abs Immat Gran (auto) (0.00-0.03) X10*3/uL Absolute Neuts (auto) (2.0-8.3) x10*3/uL Absolute Nucleated RBC (0.0-0.012) X10*3/uL Nucleated RBC % (auto) (0.0-0.2) /100WBC Sodium (135-145) mmol/L Potassium (3.3-5.1) mmol/L Chloride (96-108) mmol/L Carbon Dioxide (22-29) mmol/L Anion Gap (12-20) BUN (9-16) mg/dL Creatinine (0.5-1.4) mg/dL Estim Creat Clear Calc Estimated GFR Random Glucose (60-115) mg/dL Calcium (8.4-10.2) mg/dL Urine Color Yellow Urine Appearance Clear Urine pH 5.5 (5.0-9.0) Ur Specific [place] 1.020 (1.005-1.025) Urine Protein Negative (Neg-Trace) mg/dL Urine Glucose (UA) Negative (Negative) mg/dL Urine Ketones Trace (Negative) mg/dL Urine Blood Negative (Negative) Urine Nitrite Negative (Negative) Ur Leukocyte Esterase Negative (Negative) Urine Test NEGATIVE (NEGATIVE) COVID-19 ([facility]) (Negative) COVID-19 Clin Com <Sandhya Hollis NP - Last Filed: 05/22/22 19:25> Lab Results 0305/22/22 05/22/22 Range/Units 19:44 19:44 19:44 WBC 7.5 (4.8-10.8) X10*3/uL RBC 4.51 (4.20-5.50) X10*6/uL Hgb 13.3 (12.0-16.0) g/dl Hct 39.5 (37.0-47.0) % MCV 87.6 (80.0-98.0) fL MCH 29.5 (27.0-33.0) pg MCHC 33.7 (31.0-35.0) g/dl RDW 12.0 (11.0-16.0) % Plt Count 362 (160-400) X10*3/uL MPV 9.2 L (9.4-12.3) fL Immature Gran % (Auto) 0.1 (0.0-0.4) % Neut % (Auto) 28.1 L (45-73) % Lymph % (Auto) 58.5 H (20-40) % [place] % (Auto) 5.6 (2-11) % Eos % (Auto) 6.8 H (0-4) % Baso % (Auto) 0.9 (0-2) % Lymph # (Auto) 4.4 (1.2-4.9) X10*3/uL [place] # (Auto) 0.4 (0.1-1.2) X10*3/uL Eos # (Auto) 0.5 H (0.0-0.4) X10*3/uL Baso # (Auto) 0.1 (0.0-0.2) X10*3/uL Abs Immat Gran (auto) 0.01 (0.00-0.03) X10*3/uL Absolute Neuts (auto) 2.1 (2.0-8.3) x10*3/uL Absolute Nucleated RBC 0.000 (0.0-0.012) X10*3/uL Nucleated RBC % (auto) 0.0 (0.0-0.2) /100WBC Sodium 141 (135-145) mmol/L Potassium 3.9 (3.3-5.1) mmol/L Chloride 107 (96-108) mmol/L Carbon Dioxide 26 (22-29) mmol/L Anion Gap 12 (12-20) BUN 8 L (9-16) mg/dL Creatinine 0.81 (0.5-1.4) mg/dL Estim Creat Clear Calc 80.9 Estimated GFR > 60 Random Glucose 100 (60-115) mg/dL Calcium 8.6 D (8.4-10.2) mg/dL Urine Color Urine Appearance Urine pH (5.0-9.0) Ur Specific [place] (1.005-1.025) Urine Protein (Neg-Trace) mg/dL Urine Glucose (UA) (Negative) mg/dL Urine Ketones (Negative) mg/dL Urine Blood (Negative) Urine Nitrite (Negative) Ur Leukocyte Esterase (Negative) Urine Test (NEGATIVE) COVID-19 ([facility]) Negative (Negative) COVID-19 Clin Com See Note 05/22/22 05/22/22 Range/Units 19:44 19:44 WBC (4.8-10.8) X10*3/uL RBC (4.20-5.50) X10*6/uL Hgb (12.0-16.0) g/dl Hct (37.0-47.0) % MCV (80.0-98.0) fL MCH (27.0-33.0) pg MCHC (31.0-35.0) g/dl RDW (11.0-16.0) % Plt Count (160-400) X10*3/uL MPV (9.4-12.3) fL Immature Gran % (Auto) (0.0-0.4) % Neut % (Auto) (45-73) % Lymph % (Auto) (20-40) % [place] % (Auto) (2-11) % Eos % (Auto) (0-4) % Baso % (Auto) (0-2) % Lymph # (Auto) (1.2-4.9) X10*3/uL [place] # (Auto) (0.1-1.2) X10*3/uL Eos # (Auto) (0.0-0.4) X10*3/uL Baso # (Auto) (0.0-0.2) X10*3/uL Abs Immat Gran (auto) (0.00-0.03) X10*3/uL Absolute Neuts (auto) (2.0-8.3) x10*3/uL Absolute Nucleated RBC (0.0-0.012) X10*3/uL Nucleated RBC % (auto) (0.0-0.2) /100WBC Sodium (135-145) mmol/L Potassium (3.3-5.1) mmol/L Chloride (96-108) mmol/L Carbon Dioxide (22-29) mmol/L Anion Gap (12-20) BUN (9-16) mg/dL Creatinine (0.5-1.4) mg/dL Estim Creat Clear Calc Estimated GFR Random Glucose (60-115) mg/dL Calcium (8.4-10.2) mg/dL Urine Color Yellow Urine Appearance Clear Urine pH 5.5 (5.0-9.0) Ur Specific [place] 1.020 (1.005-1.025) Urine Protein Negative (Neg-Trace) mg/dL Urine Glucose (UA) Negative (Negative) mg/dL Urine Ketones Trace (Negative) mg/dL Urine Blood Negative (Negative) Urine Nitrite Negative (Negative) Ur Leukocyte Esterase Negative (Negative) Urine Test NEGATIVE (NEGATIVE) COVID-19 ([facility]) (Negative) COVID-19 Clin Com <Betty Krishna MD - Last Filed: 05/22/22 22:56> Radiology Impression Radiologist Impression: My interpretation is in agreement with radiology's impression of the imaging studies. <Betty Krishna MD - Last Filed: 05/22/22 22:56> External Record Review External record reviewed: Outpatient record and Prior outpatient labs <Betty Krishna MD - Last Filed: 05/22/22 22:56> Medications Administered Discontinued Medications Generic Name Dose Route Start Last Admin Trade Name Freq PRN Reason Stop Dose Admin Iohexol 100 ml 05/22/22 21:49 05/22/22 21:52 Iohexol 350 Mg/Ml 100 Ml Infus..Btl IV 05/22/22 21:50 85 ml ONCE ONE Administration Ketorolac Tromethamine 15 mg 05/22/22 21:23 05/22/22 22:01 Ketorolac Tromethamine 30 Mg/Ml Vial IVPUSH 05/22/22 21:24 15 mg ONCE ONE Administration Ondansetron HCl 4 mg 05/22/22 22:31 05/22/22 22:33 Ondansetron Hcl 4 Mg/2 Ml Vial IVPUSH 05/22/22 22:32 4 mg ONCE ONE Administration <Sandhya Hollis NP - Last Filed: 05/22/22 19:25> Medications Administered Discontinued Medications Generic Name Dose Route Start Last Admin Trade Name [place] PRN Reason Stop Dose Admin Iohexol 100 ml 05/22/22 21:49 05/22/22 21:52 Iohexol 350 Mg/Ml 100 Ml Infus..Btl IV 05/22/22 21:50 85 ml ONCE ONE Administration Ketorolac Tromethamine 15 mg 05/22/22 21:23 05/22/22 22:01 Ketorolac Tromethamine 30 Mg/Ml Vial IVPUSH 05/22/22 21:24 15 mg ONCE ONE Administration Ondansetron HCl 4 mg 05/22/22 22:31 05/22/22 22:33 Ondansetron Hcl 4 Mg/2 Ml Vial IVPUSH 05/22/22 22:32 4 mg ONCE ONE Administration <Betty Krishna MD - Last Filed: 05/22/22 22:56> Critical Care Time Critical Care Time Critical Care Time: Yes <Betty Krishna MD - Last Filed: 05/22/22 22:56> Total Critical Care Time: 30 <Betty Krishna MD - Last Filed: 05/22/22 22:56> Attestation: I personally attest to this time spent taking care of the patient. <Betty Krishna MD - Last Filed: 05/22/22 22:56> Discharge Plan Discharge Clinical Impression: Jejunitis <Sandhya Hollis NP - Last Filed: 05/22/22 19:25> Patient Disposition: Home, Self-Care <Sandhya Hollis NP - Last Filed: 05/22/22 19:25> Instructions: Enteritis (ED) <Sandhya Hollis NP - Last Filed: 05/22/22 19:25> Additional Instructions: 1. Recommend [id number] Tylenol/ibuprofen as needed for pain control. You may also use a heating pad for additional symptom relief. 2. I have provided with a referral which is listed below, please call them 1st thing in the morning to set up an appointment for re-evaluation further outpatient management. Return to the ER for any worsening symptoms. <Sandhya Hollis NP - Last Filed: 05/22/22 19:25> Referrals: Bud Be MD [Physician] - (36-year-old female with 2nd episode of abdominal pain and CT scan shows inflammation of the jejunum, patient has no history to better characterize the CT findings would appreciate evaluation.) <Sandhya Hollis NP - Last Filed: 05/22/22 19:25>
[2022-05-22 19:25] VITALS: BP 106/83; PULSE 83; RESP 16; TEMP 36.5; O2SAT 96; BMI 23.0
[2022-05-22 19:50] LABS: MANUAL DIFF FLAG NO
[2022-05-22 19:52] LABS: Basophils Absolute Auto 0.1 X10*3/uL (0.0-0.2); Basophils Percent Auto 0.9 % (0-2); Eosinophils Absolute Auto 0.5 X10*3/uL (0.0-0.4); Eosinophils Percent Auto 6.8 % (0-4); Hematocrit 39.5 % (37.0-47.0); Hemoglobin 13.3 g/dl (12.0-16.0); Imm Gran Abs Auto 0.01 X10*3/uL (0.00-0.03); Imm Gran Pct Auto 0.1 % (0.0-0.4); Lymphocytes Absolute Auto 4.4 X10*3/uL (1.2-4.9); Lymphocytes Percent Auto 58.5 % (20-40); Mean Corpuscular HGB Conc 33.7 g/dl (31.0-35.0); Mean Corpuscular Hemoglobin 29.5 pg (27.0-33.0); Mean Corpuscular Volume 87.6 fL (80.0-98.0); Mean Platelet Volume 9.2 fL (9.4-12.3); Monocytes Absolute Auto 0.4 X10*3/uL (0.1-1.2); Monocytes Percent Auto 5.6 % (2-11); Neutrophils Absolute Auto 2.1 x10*3/uL (2.0-8.3); Neutrophils Percent Auto 28.1 % (45-73); Platelet Count 362 X10*3/uL (160-400); Red Blood Count 4.51 X10*6/uL (4.20-5.50); White Blood Count 7.5 X10*3/uL (4.8-10.8)
[2022-05-22 19:55] LABS: Appearance Urine Clear; Color Urine Yellow; Glucose Urine UA Negative (Negative); Leukocyte Esterase Urine Negative (Negative); Nitrite Urine Negative (Negative); PH 5.5 (5.0-9.0); Urine Blood Negative (Negative); Urine Ketones Trace mg/dL (Negative); Urine Protein Negative (Neg-Trace)
[2022-05-22 19:56] LABS: UPreg QC Valid YES; Urine Pregnancy NEGATIVE (NEGATIVE)
[2022-05-22 20:20] LABS: COVID-19 Test Negative (Negative); IDNOW Serial# 6674DD1D
[2022-05-22 20:28] LABS: Anion Gap 12 (12-20); Blood Urea Nitrogen 8 mg/dL (9-16); Calcium 8.6 mg/dL (8.4-10.2); Carbon Dioxide 26 mmol/L (22-29); Chloride 107 mmol/L (96-108); Creatinine Clr Calc Pharmacy 80.9; Estimated Glomerular Filt Rate > 60; Glucose Random 100 mg/dL (60-115); Potassium 3.9 mmol/L (3.3-5.1); Sodium 141 mmol/L (135-145)
[2022-05-22] MEDS: iohexoL 350 MG/ML 100 ML INFUS..BTL IV (21:52)
[2022-05-22 22:00] VITALS: BP 94/61; PULSE 74; RESP 18; TEMP 37; O2SAT 100
[2022-05-22] MEDS: Ketorolac Tromethamine 30 MG/ML VIAL 15 MG IVPUSH (22:01)
--- NOTE | 2022-05-22 22:08 | PC.NURSE ---
PT WAS MEDICATED FOR PAIN AND NAUSEA AFTER RETURNING FROM CT SCAN
[2022-05-22] MEDS: ondansetron HCL 4 MG/2 ML VIAL IVPUSH (22:33)
--- NOTE | 2022-05-22 23:51 | PC.NURSE ---
pt ready for discharge when this nurse assumed care
--- NOTE | 2022-05-22 23:57 | PC.NURSE ---
Discharge instructions given/explained, pt ambulates safely/independently, no apparent distress, all of pt's questions answered
[2022-05-23 02:15] LABS: CT PCR NOT DETECTED (Not Detect.); NG PCR NOT DETECTED (Not Detect.)
== END 2022-05-22 23:54 | disposition home or self-care (01) ==
PROVIDERS: Nurse Practitioner Family; Emergency Provider Student in an Organized Health Care Education/Training Program
DX: K52.9 Noninfective gastroenteritis and colitis, unspecified (principal); R10.2 Pelvic and perineal pain; R05.9 Cough, unspecified; R11.0 Nausea; Z20.822 Contact with and (suspected) exposure to COVID-19; Z20.828 Contact with and (suspected) exposure to other viral communicable diseases; Z79.899 Other long term (current) drug therapy
CPT/HCPCS: 0353U; 36415; 74177; 76830; 76856; 80048; 81003; 81025; 85025; 87635; 93975; 99284; J1885; J2405; Q9967

== ENCOUNTER 2022-12-05 08:34 | Emergency (ER) | payer OTHER, SELFPAY ==
--- NOTE | ~2022-12-05 | CT_ITS ---
EXAMINATION: CT ABDOMEN AND PELVIS WITH CONTRAST CLINICAL INFORMATION: Lower abdominal pain. COMPARISON: 05/22/2022 TECHNIQUE: Multidetector volumetric images were obtained from the superior aspect of the liver through the pubic symphysis following administration 85 mL of Omnipaque 350 intravenous contrast. Sagittal and coronal reformatted images were obtained on the technologist's workstation. Oral contrast: No This CT examination was performed using dose optimization techniques as appropriate, variously including the following: *Automated exposure control *Adjustment of mA and/or kV according to patient size (this includes techniques or standardized protocols for targeted exams where dose is matched to indication/reason for exam; i.e. extremities or head) *Use of iterative reconstruction technique DLP: 346 mGy-cm FINDINGS: LUNG BASES: The visualized lung bases are unremarkable. LIVER, GALLBLADDER, AND BILIARY TREE: The liver is normal in size, shape, and attenuation. No focal hepatic lesion or biliary ductal dilatation is present. The gallbladder is surgically absent. PANCREAS: Unremarkable. SPLEEN: Unremarkable. ADRENAL GLANDS: Unremarkable. KIDNEYS AND URETERS: The kidneys are symmetric in size and enhancement. Punctate nonobstructing calculus upper pole right kidney. No hydronephrosis or perinephric stranding. BLADDER: Unremarkable. GASTROINTESTINAL TRACT: Possible gastric wall thickening and edema. Small and large bowel loops are of normal caliber. No small bowel obstruction. Appendix is within normal limits. ABDOMINAL WALL: No significant hernia is appreciated. LYMPH NODES: No bulky abdominal or pelvic lymphadenopathy. VASCULAR: Normal caliber abdominal aorta. PELVIC VISCERA: Anteverted uterus. Involuting corpus luteum in the right ovary. Small free fluid in pelvis most likely physiologic. OSSEOUS STRUCTURES: No destructive bone lesions. CT/CT abdomen pelvis w IV con IMPRESSION: Possible gastric wall thickening and edema. This may represent gastritis. Consider correlation with direct visualization. Punctate nonobstructing calculus right kidney. No hydronephrosis.
[2022-12-05 08:38] VITALS: BP 122/75; PULSE 66; RESP 18; TEMP 36.6; O2SAT 100; BMI 24.1
--- NOTE | 2022-12-05 08:38 | PC.NURSE ---
pt a&ox3. respirations even and unlabored. pt abdomen soft non tender with active bowel sounds in all 4 quadrants. pt reporting 8/10 lower abdominal pain for one week without relief. pt reports abdominal pain radiates into the right lower and upper back. pt reports nausea with no vomiting or diarrhea. pt denies chest pain.
[2022-12-05 09:01] LABS: MANUAL DIFF FLAG NO
[2022-12-05 09:05] LABS: Basophils Absolute Auto 0.1 X10*3/uL (0.0-0.2); Basophils Percent Auto 1.2 % (0-2); Eosinophils Absolute Auto 0.3 X10*3/uL (0.0-0.4); Eosinophils Percent Auto 5.9 % (0-4); Hematocrit 37.7 % (37.0-47.0); Hemoglobin 12.8 g/dl (12.0-16.0); Imm Gran Abs Auto 0.01 X10*3/uL (0.00-0.03); Imm Gran Pct Auto 0.2 % (0.0-0.4); Lymphocytes Absolute Auto 2.7 X10*3/uL (1.2-4.9); Lymphocytes Percent Auto 53.2 % (20-40); Mean Corpuscular Volume 88.3 fL (80.0-98.0); Mean Platelet Volume 9.1 fL (9.4-12.3); Monocytes Absolute Auto 0.4 X10*3/uL (0.1-1.2); Monocytes Percent Auto 8.3 % (2-11); Neutrophils Absolute Auto 1.6 x10*3/uL (2.0-8.3); Neutrophils Percent Auto 31.2 % (45-73); Platelet Count 319 X10*3/uL (160-400); Red Blood Count 4.27 X10*6/uL (4.20-5.50); Red Cell Distribution Width 11.8 % (11.0-16.0); White Blood Count 5.1 X10*3/uL (4.8-10.8)
[2022-12-05 09:08] LABS: Appearance Urine Clear; Color Urine Yellow; Glucose Urine UA Negative (Negative); Leukocyte Esterase Urine Small (1+) (Negative); Nitrite Urine Negative (Negative); PH 7.5 (5.0-9.0); UMIC TRIGGER UACC YES; Urine Blood Negative (Negative); Urine Ketones Negative (Negative); Urine Protein Negative (Neg-Trace)
[2022-12-05 09:10] LABS: UPreg QC Valid YES; Urine Pregnancy NEGATIVE (NEGATIVE)
[2022-12-05 09:18] LABS: Anion Gap 8 (12-20); Blood Urea Nitrogen 12 mg/dL (9-16); Carbon Dioxide 24 mmol/L (22-29); Chloride 109 mmol/L (96-108); Creatinine Clr Calc Pharmacy 53.2; Estimated Glomerular Filt Rate 50; Glucose Random 88 mg/dL (60-115); Potassium 3.8 mmol/L (3.3-5.1); Sodium 137 mmol/L (135-145)
[2022-12-05 09:20] LABS: Bacteria Urine Trace (None Seen); Hyaline Casts Urine 0-2 /LPF (0-2); RBC Urine 0-2 /HPF (0-2); UACC Culture Trigger YES; WBC Urine 0-5 /HPF (0-5)
--- NOTE | 2022-12-05 09:33 | ED_ITS ---
HPI - Abdominal Pain General Chief Complaint: Abdominal Pain Stated Complaint: Lower abd pain rad to R side Time Seen by Provider: 12/05/22 09:10 Source: patient Mode of arrival: ambulatory Limitations: no limitations History of Present Illness HPI narrative: This is a 37 years old female presented to the emergency department complaining of abdominal pain intermittently for weeks. Denies any fever any chills any vomiting any diarrhea. MD elicited complaint: abdominal pain Pertinent past history: none Onset (ago): week(s) (1) Pain Consistency: constant Location: none Severity: mild Quality: aching Radiation: LLQ and RLQ Migration to: no migration Exacerbating factors: nothing Relieving factors: nothing Related Data Previous Rx's Medication Instructions Recorded pantoprazole 40 mg granules 40 mg PO DAILY #30 ea 12/05/22 delayed-release for susp in packet (Protonix) Allergies Allergy/AdvReac Type Severity Reaction Status Date / Time diphenhydramine Allergy Unknown SEIZURE Verified 05/09/22 07:48 [From BENADRYL] tramadol [TRAMADOL] Allergy Unknown LOCKS UP Verified 05/09/22 07:48 INSIDES acetaminophen [From Percocet] Allergy Abdominal Verified 12/05/22 08:42 Pain oxycodone [From Percocet] Allergy Abdominal Verified 12/05/22 08:42 Pain Review of Systems Constitutional: Reports no additional constitutional complaints Reports system reviewed and no additional complaints, except as documented Cardiovascular: Reports no additional cardiovascular complaints [facility] Past Medical History Surgical History History of cholecystectomy H/O lumpectomy Social History Social History Alcohol intake: current Alcohol intake frequency: holidays/special occasions only Smoked in Last 30 Days: No Use of substances other than those prescribed or required for medical reasons: Yes Substance Use Type: Marijuana Last Used Substance: Days (ago) Advance Directives: No Physical Exam ED Vital Signs: Vital Signs - 24 hr 12/05/22 08:38 12/05/22 10:40 Temperature 97.8 F Pulse Rate 66 56 Respiratory Rate 18 16 Blood Pressure 122/75 108/52 L Pulse Oximetry 100 100 Oxygen Delivery Method Room Air Room Air BMI result Body Mass Index 24.1 Const General: comfortable and no acute distress Nutritional Appearance: average body habitus Orientation/consciousness: patient oriented x3 Limitations: no limitations HENMT Head: Yes normal to inspection General nose exam: Normal external nose present Face and sinus: Yes normal facial exam Eyes General: appearance normal, both eyes and all related structures Neck Neck: Yes normal visual inspection and Yes full ROM Chest Chest palpation & inspection: normal inspection of the chest Resp Effort & Inspection: normal respiratory effort Auscultation: clear to auscultation bilaterally Cardio Jugular venous distension: no JVD Rate: regular rate GI Inspection: Yes normal to inspection Palpation (GI): Soft to palpation, not firm, nontender and no guarding Percussion: Yes normal to percussion Skin General skin exam: no rashes or lesions noted Rashes: no rashes Neuro General: patient oriented x3 Course Reevaluation(s) Reevaluation #1: stable ct c/w gastritis will d/c on protonix will give number of GI specialist,I gave copy of ct as well Time: 11:25 Medical Decision Making Medical Decision Making [facility] Narrative: Patient presents to the emergency department with chief complaint of abdominal pain for weeks we did check labs UA will do CT and reassess Differential Diagnosis Differential Diagnoses: The differential diagnosis associated with the presentation includes Colitis/diverticulitis/kidney stone Admission/Observation Consideration of admission/observation: Escalation of care including admission/observation considered Lab Data [facility] Lab Attestation statement: I reviewed the patient's lab results. 12/05/22 08:57 12/05/22 08:57 Labs: Lab Results 12/05/22 12/05/22 Range/Units 08:53 08:57 WBC 5.1 (4.8-10.8) X10*3/uL RBC 4.27 (4.20-5.50) X10*6/uL Hgb 12.8 (12.0-16.0) g/dl Hct 37.7 (37.0-47.0) % MCV 88.3 (80.0-98.0) fL MCH 30.0 (27.0-33.0) pg MCHC 34.0 (31.0-35.0) g/dl RDW 11.8 (11.0-16.0) % Plt Count 319 (160-400) X10*3/uL MPV 9.1 L (9.4-12.3) fL Immature Gran % (Auto) 0.2 (0.0-0.4) % Neut % (Auto) 31.2 L (45-73) % Lymph % (Auto) 53.2 H (20-40) % [place] % (Auto) 8.3 (2-11) % Eos % (Auto) 5.9 H (0-4) % Baso % (Auto) 1.2 (0-2) % Lymph # (Auto) 2.7 (1.2-4.9) X10*3/uL [place] # (Auto) 0.4 (0.1-1.2) X10*3/uL Eos # (Auto) 0.3 (0.0-0.4) X10*3/uL Baso # (Auto) 0.1 (0.0-0.2) X10*3/uL Abs Immat Gran (auto) 0.01 (0.00-0.03) X10*3/uL Absolute Neuts (auto) 1.6 L (2.0-8.3) x10*3/uL Absolute Nucleated RBC 0.000 (0.0-0.012) X10*3/uL Nucleated RBC % (auto) 0.0 (0.0-0.2) /100WBC Sodium 137 (135-145) mmol/L Potassium 3.8 (3.3-5.1) mmol/L Chloride 109 H (96-108) mmol/L Carbon Dioxide 24 (22-29) mmol/L Anion Gap 8 L (12-20) BUN 12 (9-16) mg/dL Creatinine 1.22 (0.5-1.4) mg/dL Estim Creat Clear Calc 53.2 Estimated GFR 50 Random Glucose 88 (60-115) mg/dL Calcium 9.0 (8.4-10.2) mg/dL Urine Color Yellow Urine Appearance Clear Urine pH 7.5 (5.0-9.0) Ur Specific Daisy 1.010 (1.005-1.025) Urine Protein Negative (Neg-Trace) mg/dL Urine Glucose (UA) Negative (Negative) mg/dL Urine Ketones Negative (Negative) mg/dL Urine Blood Negative (Negative) Urine Nitrite Negative (Negative) Ur Leukocyte Esterase Small (1+) H (Negative) Urine RBC 0-2 (0-2) /HPF Urine WBC 0-5 (0-5) /HPF Ur Squamous Epith Cells 3-5 (0-2) /HPF Urine Bacteria Trace (None Seen) Hyaline Casts 0-2 (0-2) /LPF Urine Test NEGATIVE (NEGATIVE) Independent Interpretation I performed an independent interpretation of an: CT Scan Interpretation: thickening stomach Radiology Impression Discussion of test interpretation with radiology: I have reviewed the radiologist's reading. Radiologist Impression: obstruction. Appendix is within normal limits. ABDOMINAL WALL: No significant hernia is appreciated. LYMPH NODES: No bulky abdominal or pelvic lymphadenopathy. VASCULAR: Normal caliber abdominal aorta. PELVIC VISCERA: Anteverted uterus. Involuting corpus luteum in the right ovary. Small free fluid in pelvis most likely physiologic. OSSEOUS STRUCTURES: No destructive bone lesions. CT/CT abdomen pelvis w IV con IMPRESSION: Possible gastric wall thickening and edema. This may represent gastritis. Consider correlation with direct visualization. Punctate nonobstructing calculus right kidney. No hydronephrosis. Dictated By: Emperatriz Ardon MD Signed By: <Electronically signed by Emperatriz Ardon MD in OV> 12/05/22 1030 DD/ 1003 TD/TT: Body Art Technician: Medications Administered Discontinued Medications Generic Name Dose Route Start Last Admin Trade Name Freq PRN Reason Stop Dose Admin Iohexol 100 ml 12/05/22 10:02 12/05/22 10:02 Iohexol 350 Mg/Ml 100 Ml Infus..Btl IV 12/05/22 10:03 85 ml ONCE ONE Administration Discharge Plan Discharge Clinical Impression: Gastritis Patient Disposition: Home, Self-Care Instructions: Gastritis (DC) Additional Instructions: Follow-up with the astro technician call to [facility] and make appointment [phone], take Protonix as directed, return to emergency room if you are worse Prescriptions: New pantoprazole [Protonix] [address] for susp in packet 40 mg PO DAILY Qty: 30 0RF Referrals: David Schreiber [Physician] - 3 days
[2022-12-05] MEDS: iohexoL 350 MG/ML 100 ML INFUS..BTL IV (10:02)
[2022-12-05 10:40] VITALS: BP 108/52; PULSE 56; RESP 16; O2SAT 100
== END 2022-12-05 12:06 | disposition home or self-care (01) ==
PROVIDERS: Emergency Provider Emergency Medicine
DX: K29.70 Gastritis, unspecified, without bleeding (principal); R10.32 Left lower quadrant pain; R10.31 Right lower quadrant pain; Z79.899 Other long term (current) drug therapy
CPT/HCPCS: 36415; 74177; 80048; 81001; 81025; 85025; 87086; 99284; Q9967

== ENCOUNTER 2023-10-08 13:35 | Emergency (ER) | payer OTHER, SELFPAY ==
--- NOTE | ~2023-10-08 | XR_ITS ---
EXAMINATION: XR CHEST CLINICAL INFORMATION: Difficulty swallowing, vomiting. COMPARISON: Chest radiograph 09/20/2020. TECHNIQUE: 2 views of the chest were obtained. FINDINGS: Normal appearance of the cardiomediastinal silhouette. No evidence of pneumomediastinum. No focal consolidation, pleural effusion or pneumothorax. No acute osseous findings. Visualized upper abdomen is within normal limits. Right upper quadrant surgical clips are seen. XR/XR chest 2V IMPRESSION: 1. No acute cardiopulmonary findings. 2. No evidence of pneumomediastinum.
[2023-10-08 13:37] VITALS: BP 127/94; PULSE 115; RESP 22; TEMP 37.3; O2SAT 96; BMI 23.7
--- NOTE | 2023-10-08 13:38 | ED_ITS ---
HPI - General Adult General Chief complaint: General Medical Stated complaint: swollen tongue throat issues Time Seen by Provider: 10/08/23 13:54 Source: patient Mode of arrival: ambulatory Limitations: no limitations History of Present Illness ED Provider: mandy LUX narrative: Patient is a 38-year-old female presenting to the emergency department with complaint of burning inside her mouth and throat and difficulty swallowing. She reports that she was out drinking last night and this morning had some nausea so she forced herself to throw up twice. States after this she developed the burning sensation to her mouth and throat. Did not take any ieih-sfv-dhxracy medications prior to arrival because she was afraid of swallowing pills at home. She reports she did feel some throat irritation yesterday prior to going out but she thought this was due to her seasonal allergies. Now she complains of headache and body aches as well. Denies chest pain, difficulty breathing or shortness of breath. complaint: throat pain Onset (ago): hour(s) Severity: severe Quality: burning Pain Consistency: constant Associated symptoms: headaches Treatments prior to arrival: none Related Data Previous Rx's ?Medication ?Instructions ?Recorded pantoprazole 40 mg granules 40 mg PO DAILY #30 ea 12/05/22 delayed-release for susp in packet (Protonix) ibuprofen 100 mg/5 mL oral 400 mg (20 mL) PO Q6H PRN pain 10/08/23 suspension #118 mL Allergies Allergy/AdvReac Type Severity Reaction Status Date / Time diphenhydramine Allergy Unknown SEIZURE Verified 10/08/23 13:39 [From BENADRYL] tramadol [TRAMADOL] Allergy Unknown LOCKS UP Verified 10/08/23 13:39 INSIDES acetaminophen [From Percocet] Allergy Abdominal Verified 10/08/23 13:39 Pain oxycodone [From Percocet] Allergy Abdominal Verified 10/08/23 13:39 Pain Review of Systems Review of Systems: As per HPI. Yes all other systems are reviewed and are negative Constitutional: Constitutional: Reports as per HPI [facility] Past Medical History Surgical History History of cholecystectomy H/O lumpectomy Social History Social History Alcohol intake: current Alcohol intake frequency: holidays/special occasions only Substance Use Type: Marijuana Advance Directives: No Advance Directives Information Provided: No Do you have a plan to hurt others: No Plan Physical Exam ED Vital Signs: Vital Signs - 24 hr 10/08/23 13:37 Temperature 99.1 F Pulse Rate 115 H Respiratory Rate 22 H Blood Pressure 127/94 H Pulse Oximetry 96 Oxygen Delivery Method Room Air BMI result Body Mass Index 23.7 Vital signs have been reviewed and appear to be correct. Blood pressure elevated. Heart rate mildly tachycardic. Respiratory rate normal. Temperature normal. Oxygen saturation normal. Const General: cooperative, healthy appearing and no acute distress Orientation/consciousness: oriented to person, oriented to place, oriented to time and patient oriented x3 Limitations: no limitations HENMT Head: Yes normocephalic and Yes atraumatic Ears: external ears normal General nose exam: Normal external nose present Face and sinus: Yes face symmetric Mouth: Normal oral and palatal mucosa present, lip normal, tongue normal, Normal salivary glands and ducts present, oropharynx normal, moist mucous membranes, no audible dysphonia, no drooling, no muffled voice, no trismus and No restricted motion Throat: Yes posterior oropharynx normal, Yes tonsils normal, Yes uvula midline, No peritonsillar mass and No uvular edema Eyes Pupils: Equal, round and reactive pupils present Neck Neck: Yes normal visual inspection, Yes full ROM, Yes no lymphadenopathy, Yes no meningeal signs, Yes trachea midline, Yes supple and No anterior neck swelling Lymphatic: no lymphadenopathy noted Resp Effort & Inspection: normal respiratory effort, able to speak in complete sentences, not labored, no retractions, no use of accessory muscles and symmetric chest movement Auscultation: clear to auscultation bilaterally Cardio Rate: regular rate Rhythm: regular rhythm Heart sounds: S1 normal heart sound present and S2 normal heart sound present GI Palpation (GI): Soft to palpation and nontender Auscultation: normoactive bowel sounds General: Yes no CVA tenderness Back/Spine/Pelvis Back: no CVA tenderness Skin General skin exam: elasticity normal and turgor normal Neuro General: oriented to person, oriented to place, oriented to time, patient oriented x3, moves all extremities, no meningeal signs, no focal motor deficits and CN's II-XI intact bilaterally Cranial nerves: Yes Equal, round and reactive pupils present Cognition (Neuro): normal cognition Extrem General: Yes full ROM, Yes no pedal edema and Yes no calf tenderness Psych Mental Status: mental status grossly normal Affect: normal affect Thought process: Normal thought process present Course Course Course Narrative: This is a rapid medical exam. Deferred additional HPI, ROS, PE to primary provider. 38 yo female with history of asthma Patient had some drinks last night, had been vomiting and now feels like her tongue is swollen/ears & throat burning. Oropharynx normal in appearance VSS A[employer]Pasc[employer] Medications Administered Discontinued Medications Generic Name Dose Route Start Last Admin Trade Name Freq PRN Reason Stop Dose Admin Ibuprofen 600 mg 10/08/23 15:20 10/08/23 15:25 Ibuprofen Oral Susp 100 Mg/5 Ml Oral.Susp PO 10/08/23 15:21 600 mg ONCE ONE Administration Lidocaine HCl 15 ml 10/08/23 15:20 10/08/23 15:25 Lidocaine Hcl Viscous 2 % 15 Ml Solution MUCOUS MEM 10/08/23 15:21 15 ml ONCE ONE Administration Medical Decision Making Medical Decision Making [facility] Narrative: Patient is a 38-year-old female presenting to the emergency department with complaint of burning inside her mouth and throat and difficulty swallowing. On exam patient is awake, A+Ox3, VS WNL, afebrile, normal neurological exam without focal deficits, physical exam findings as above. Given reported symptoms and physical exam findings, initial differential includes esophageal irritation, strep pharyngitis, viral illness, covid, flu. Unlikely esophageal rupture or pneumomediastinum. X-ray chest notable for no evidence of pneumomediastinum or other acute abnormalities. My interpretation is in agreement with the radiologist's interpretation. Viral and strep swabs negative. Patient updated on results and all questions answered. Will send prescription for liquid ibuprofen. Advised patient to stick to soft diet today then progress back to regular diet as tolerated. Follow-up with PCP. Return precautions discussed at bedside. Patient verbalized understanding of and agreement with plan. Differential Diagnosis Differential Diagnoses: The differential diagnosis associated with the presentation includes As per [facility]. Admission/Observation Consideration of admission/observation: Escalation of care including admission/observation considered Patient would have been admitted to the hospital had their work up had any findings where hospital admission was appropriate and their clinical presentation warranted hospital admission. Lab Data [facility] Lab Attestation statement: I reviewed the patient's lab results. as per [facility] Labs: Lab Results 10/08/23 10/08/23 Range/Units 15:30 16:04 Influenza Type A (PCR) NEGATIVE (Negative) Influenza Type B (PCR) NEGATIVE (Negative) RSV RNA Qual (PCR) NEGATIVE (Negative) SARS-CoV-2 RNA (RT-PCR) NEGATIVE (Negative) S. pyogenes GrpA CHAMP Negative (Negative) Independent Interpretation I performed an independent interpretation of an: Plain X-Ray Interpretation: Chest x-ray is without evidence of pneumomediastinum Radiology Impression Discussion of test interpretation with radiology: I have reviewed the radiologist's reading. Radiologist Impression: XR/XR chest 2V IMPRESSION: 1. No acute cardiopulmonary findings. 2. No evidence of pneumomediastinum. External Record Review External record reviewed: Inpatient record, Office record and Outpatient record Prescription Management I considered prescription management with: Pain Medication Discharge Plan Discharge Clinical Impression: Acute sore throat Patient Disposition: Home, Self-Care Instructions: Pharyngitis (ED) Additional Instructions: You were evaluated in the emergency department today for painful swallowing. Your symptoms improved with medication in the emergency department. Your x-ray did not show evidence of any conditions requiring emergent medical treatment. Your swabs for strep, flu, and COVID were all negative. You are being prescribed liquid ibuprofen which you can use every 6 hours as needed for pain. Follow-up with your primary care provider. Return to the emergency department if you are unable to swallow her saliva, have shortness of breath or difficulty breathing, or unable to tolerate fluids by mouth, or any other concerning symptoms. Prescriptions: New ibuprofen 100 mg/5 mL suspension 400 mg PO Q6H PRN (Reason: pain) Qty: 118 0RF No Action pantoprazole [Protonix] [address] for susp in packet 40 mg PO DAILY Qty: 30 0RF Stand Alone Forms: Work/School Release Print Language: Thai
[2023-10-08] MEDS: Ibuprofen Oral Susp 100 MG/5 ML ORAL.SUSP 600 MG PO (15:25)
[2023-10-08] MEDS: Lidocaine HCl Viscous 2 % 15 ML SOLUTION MUCOUS MEM (15:25)
[2023-10-08 16:15] LABS: Influenza A PCR NEGATIVE (Negative); Influenza B PCR NEGATIVE (Negative); Resp Syncy Virus RNA Qual PCR NEGATIVE (Negative); SARS COV2 PCR INHOUSE NEGATIVE (Negative)
[2023-10-08 16:22] LABS: IDNOW Serial# 08D9AD1C; Strep A Nucleic Acid Negative (Negative)
[2023-10-08 16:59] VITALS: BP 109/58; PULSE 71; RESP 15; TEMP 37.3; O2SAT 99
== END 2023-10-08 17:00 | disposition home or self-care (01) ==
PROVIDERS: Registered Nurse Emergency; Emergency Provider Emergency Medicine
DX: J02.9 Acute pharyngitis, unspecified (principal); R13.10 Dysphagia, unspecified; R11.10 Vomiting, unspecified; Z03.818 Encounter for observation for suspected exposure to other biological agents ruled out
CPT/HCPCS: 0241U; 71046; 87651; 99283

== ENCOUNTER 2023-11-29 04:55 | Emergency (ER) | payer OTHER, SELFPAY ==
--- NOTE | ~2023-11-29 | US_ITS ---
EXAMINATION: US OBSTETRICAL ULTRASOUND CLINICAL INFORMATION: Confirm intrauterine . Abdominal pain. Quantitative hCG 5229. COMPARISON: None available. LMP: 10/16/2023. Gestational age by maternal dates is 6 weeks 2 days. Estimated date of delivery by maternal dates is 07/22/2024. TECHNIQUE: Transabdominal and transvaginal imaging of the pelvis was performed. FINDINGS: The uterus measures 7.8 x 5.1 x 5.6 cm. There is no intrauterine gestational sac demonstrated. In the region of the left adnexa there is a cystic lesion with a possible yolk sac measuring 1.8 x 1.6 x 1.4 cm. The left ovary measures 2.7 x 1.6 x 1.9 cm. There is a complex cyst possible corpus luteum measuring 1.8 x 1.4 x 1.7 cm. Small free fluid in the left adnexa. The right ovary measures 1.9 x 0.9 x 1.9 cm. US/US OB pelvic and transvaginal IMPRESSION: No evidence of intrauterine . There is a left adnexal mass concerning for an ectopic . Dr. Ma was given the results by the oil expeller at the time of imaging. Electronically signed by: Jaime Ardon MD 11/29/2023 10:55 AM EDT
[2023-11-29 04:56] VITALS: BP 137/80; PULSE 76; RESP 18; TEMP 36.6; O2SAT 99; BMI 24.1
[2023-11-29 05:12] LABS: Basophils Percent Auto 0.8 % (0-2); Eosinophils Absolute Auto 0.3 X10*3/uL (0.0-0.4); Eosinophils Percent Auto 4.7 % (0-4); Hematocrit 37.3 % (37.0-47.0); Imm Gran Abs Auto 0.01 X10*3/uL (0.00-0.03); Imm Gran Pct Auto 0.2 % (0.0-0.4); Lymphocytes Absolute Auto 3.2 X10*3/uL (1.2-4.9); Lymphocytes Percent Auto 60.9 % (20-40); Mean Corpuscular HGB Conc 34.9 g/dl (31.0-35.0); Mean Corpuscular Hemoglobin 30.1 pg (27.0-33.0); Mean Corpuscular Volume 86.3 fL (80.0-98.0); Mean Platelet Volume 8.8 fL (9.4-12.3); Monocytes Absolute Auto 0.4 X10*3/uL (0.1-1.2); Monocytes Percent Auto 7.8 % (2-11); Neutrophils Absolute Auto 1.4 x10*3/uL (2.0-8.3); Neutrophils Percent Auto 25.6 % (45-73); Platelet Count 338 X10*3/uL (160-400); Red Blood Count 4.32 X10*6/uL (4.20-5.50); Red Cell Distribution Width 11.8 % (11.0-16.0); SCAN SMEAR FLAG 1; White Blood Count 5.3 X10*3/uL (4.8-10.8)
[2023-11-29 05:22] LABS: Color Urine Yellow; Glucose Urine UA Negative (Negative); Leukocyte Esterase Urine Negative (Negative); Nitrite Urine Negative (Negative); Specific Gravity - Urine >= 1.030 (1.005-1.025); UMIC TRIGGER UACC YES; Urine Blood Large (3+) (Negative); Urine Ketones 15 mg/dL (Negative); Urine Protein Negative (Neg-Trace)
[2023-11-29 05:23] LABS: Appearance Urine Hazy
[2023-11-29 05:24] LABS: MANUAL DIFF FLAG SCAN
[2023-11-29 05:32] LABS: Alanine Aminotransferase 12 U/L (0-31); Alkaline Phosphatase 56 U/L (39-117); Anion Gap 12 (12-20); Aspartate Amino Transferase 12 U/L (5-31); Bilirubin Total 0.7 mg/dL (0.0-1.0); Blood Urea Nitrogen 7 mg/dL (9-16); Calcium 9.3 mg/dL (8.4-10.2); Carbon Dioxide 22 mmol/L (22-29); Chloride 109 mmol/L (96-108); Creatinine Clr Calc Pharmacy 78.5; Estimated Glomerular Filt Rate > 60; Glucose Random 95 mg/dL (60-115); HCG Quantitative 5229 mIU/mL; Potassium 3.5 mmol/L (3.3-5.1); Sodium 139 mmol/L (135-145); Total Protein 7.1 g/dL (6.5-8.0)
[2023-11-29 05:36] LABS: SLIDE REVIEW VERIFIED
[2023-11-29 05:58] LABS: Bacteria Urine 4+ (None Seen); Calcium Oxalate Crystals Urine Present; Hyaline Casts Urine 0-2 /LPF (0-2); RBC Urine >20 /HPF (0-2); Squamous Epithelial Cell Urine >20 /HPF (0-2); UACC Culture Trigger YES
[2023-11-29 08:00] VITALS: BP 121/56; PULSE 70; RESP 18; TEMP 36.7; O2SAT 98
--- NOTE | 2023-11-29 08:00 | PC.NURSE ---
unable to reasses pt in the waiting room due to not present at this time. 0800
--- NOTE | 2023-11-29 08:30 | PC.NURSE ---
Pt comes from home for lower abd pain that started a few days ago. Pt recently got a positive test on 11/26, would be around 6 weeks at this time. Hx of one ectopic in past, pt noticed light spotting a few days ago. Pain in lower abdominal area, sharp and constant, pain on palpation. Pt endorses nausea, headache. Denies cp, sob, vomiting, dizziness. A/ox4, no increased wob/sob, lung sounds cta bilaterally, s1 and s2 heard, HR- 70s, abdomen tender on palpation, 11/27 to lower abdominal region. Pt states no hematuria, no frequency/urgency/burning with urination. Pending ultrasound, pt updated on plan of care, call gunter within reach, all needs met at this time.
--- NOTE | 2023-11-29 08:41 | ED.ABDPAIN ---
HPI - Abdominal Pain General Chief Complaint: Abdominal Pain Stated Complaint: abdominal pain about 6 weeks Time Seen by Provider: 11/29/23 08:21 History of Present Illness HPI narrative: Patient is a 38-year-old female presented today with having lower abdominal pain. Patient stated her last menstrual period was about 6 weeks ago. She is with 1 elective termination. Patient complaining of no fever no chills. No change in bowel movement. No nausea no vomiting. Have some mild cramping in the lower abdomen area. Patient is from home. Related Data Previous Rx's ?Medication ?Instructions ?Recorded pantoprazole 40 mg granules 40 mg PO DAILY #30 ea 12/05/22 delayed-release for susp in packet (Protonix) ibuprofen 100 mg/5 mL oral 400 mg (20 mL) PO Q6H PRN pain 10/08/23 suspension #118 mL Allergies Allergy/AdvReac Type Severity Reaction Status Date / Time diphenhydramine Allergy Unknown SEIZURE Verified 11/29/23 05:00 [From BENADRYL] tramadol [TRAMADOL] Allergy Unknown LOCKS UP Verified 11/29/23 05:00 INSIDES oxycodone [From Percocet] Allergy Abdominal Verified 11/29/23 05:00 Pain Review of Systems Review of Systems Positive abdominal pain Yes all other systems are reviewed and are negative PMFSH Past Medical History Attestation statement: The following information was validated with the patient. Surgical History History of cholecystectomy H/O lumpectomy Social History Social History Alcohol intake: current Alcohol intake frequency: holidays/special occasions only Smoked in Last 30 Days: No Use of substances other than those prescribed or required for medical reasons: No Substance Use Type: Marijuana Advance Directives: No Advance Directives Information Provided: No Do you have a plan to hurt others: No Plan Patient : Yes Physical Exam ED Vital Signs: Vital Signs - 24 hr 11/29/23 04:56 11/29/23 08:00 Temperature 97.9 F 98.0 F Pulse Rate 76 70 Respiratory Rate 18 18 Blood Pressure 137/80 121/56 L Pulse Oximetry 99 98 Oxygen Delivery Method Room Air Room Air BMI result Body Mass Index 24.1 Appearance: Alert. Oriented X3. No acute distress. Eyes: Pupils equal, round and reactive to light. ENT: Pharynx normal. Neck: Normal inspection. Neck supple. No lymph nodes noted. No crepitus CVS: Normal heart rate and rhythm. Pulses normal. Normal S1 and S2 Respiratory: No respiratory distress. Breath sounds normal. No Wheezing. No rales Abdomen: Soft and nontender. No rigidity. No distention. good BS x4 Skin: Skin warm and dry. Normal skin color. Normal skin turgor. Extremities: No lower extremity edema. Neurovascular intact to all extremities. No Lacerations. No Rash Neuro: Oriented X 3. No motor deficit. No sensory deficit. Moving all extermities. No slurred speech Medical Decision Making Medical Decision Making [facility] Narrative: Patient's quant is approximately 5200. Her last menstrual period was the end of September. Patient's blood type is B positive. Ultrasound was done. The ultrasound was positive for having a outside of the uterus near the left adnexa. There is a yolk sac that was present per Radiology report. There was a gestational sac. There is no heart tone that was noted. Music Executive down to evaluate patient. Agreed most likely patient had an ectopic in the setting of a negative found in the uterus. Positive mass with a yolk sac noted in the left adnexa. Box Toe Stitcher did not note any free fluid in the abdomen. Patient's blood pressure is stable. She is well appearing no acute distress. Dr. Sanders from OBGYN wanted to start patient on methotrexate. However patient has a quant that is slightly elevated. Will mostly required multiple doses of methotrexate. We do not have the capability to give methotrexate on Monday which would be the next day she needs the medication. Suggested for patient to be transferred. Patient's case discussed with Dr. Tom from [facility]. Agree with plan of transfer. Differential Diagnosis Differential Diagnoses: The differential diagnosis associated with the presentation includes Ectopic , urinary tract infection, ovarian cyst Admission/Observation Consideration of admission/observation: Escalation of care including admission/observation considered Consult Healthcare Provider Management of the patient was discussed with: Primer Charging Tool Setter (OBGYN at [facility], OBGYN at [facility]) Lab Data [facility] Lab Attestation statement: I reviewed the patient's lab results. 11/29/23 05:07 11/29/23 05:07 Labs: Lab Results 11/29/23 11/29/23 11/29/23 Range/Units 05:07 05:13 09:26 WBC 5.3 (4.8-10.8) X10*3/uL RBC 4.32 (4.20-5.50) X10*6/uL Hgb 13.0 (12.0-16.0) g/dl Hct 37.3 (37.0-47.0) % MCV 86.3 (80.0-98.0) fL MCH 30.1 (27.0-33.0) pg MCHC 34.9 (31.0-35.0) g/dl RDW 11.8 (11.0-16.0) % Plt Count 338 (160-400) X10*3/uL MPV 8.8 L (9.4-12.3) fL Immature Gran % (Auto) 0.2 (0.0-0.4) % Neut % (Auto) 25.6 L (45-73) % Lymph % (Auto) 60.9 H (20-40) % [place] % (Auto) 7.8 (2-11) % Eos % (Auto) 4.7 H (0-4) % Baso % (Auto) 0.8 (0-2) % Lymph # (Auto) 3.2 (1.2-4.9) X10*3/uL [place] # (Auto) 0.4 (0.1-1.2) X10*3/uL Eos # (Auto) 0.3 (0.0-0.4) X10*3/uL Baso # (Auto) 0.0 (0.0-0.2) X10*3/uL Abs Immat Gran (auto) 0.01 (0.00-0.03) X10*3/uL Absolute Neuts (auto) 1.4 L (2.0-8.3) x10*3/uL Absolute Nucleated RBC 0.000 (0.0-0.012) X10*3/uL Nucleated RBC % (auto) 0.0 (0.0-0.2) /100WBC Smear Tech's Comments VERIFIED PT (11.1-13.3) SEC INR (0.9-1.1) Sodium 139 (135-145) mmol/L Potassium 3.5 (3.3-5.1) mmol/L Chloride 109 H (96-108) mmol/L Carbon Dioxide 22 (22-29) mmol/L Anion Gap 12 (12-20) BUN 7 L (9-16) mg/dL Creatinine 0.82 (0.5-1.4) mg/dL Estim Creat Clear Calc 78.5 Estimated GFR > 60 Random Glucose 95 (60-115) mg/dL Calcium 9.3 (8.4-10.2) mg/dL Total Bilirubin 0.7 (0.0-1.0) mg/dL AST 12 (5-31) U/L ALT 12 (0-31) U/L Alkaline Phosphatase 56 (39-117) U/L Total Protein 7.1 (6.5-8.0) g/dL Albumin 4.0 (3.5-5.0) g/dL Beta HCG, Quant 5229 mIU/mL Urine Color Yellow Urine Appearance Hazy Urine pH 6.0 (5.0-9.0) Ur Specific [place] >= 1.030 H (1.005-1.025) Urine Protein Negative (Neg-Trace) mg/dL Urine Glucose (UA) Negative (Negative) mg/dL Urine Ketones 15 (Negative) mg/dL Urine Blood Large (3+) H (Negative) Urine Nitrite Negative (Negative) Ur Leukocyte Esterase Negative (Negative) Urine RBC >20 H (0-2) /HPF Urine WBC 6-10 H (0-5) /HPF Ur Squamous Epith Cells >20 (0-2) /HPF Calcium Oxalate Crystal Present Urine Bacteria 4+ (None Seen) Hyaline Casts 0-2 (0-2) /LPF Blood Type B Positive Antibody Screen NEGATIVE 11/29/23 Range/Units 09:44 WBC (4.8-10.8) X10*3/uL RBC (4.20-5.50) X10*6/uL Hgb (12.0-16.0) g/dl Hct (37.0-47.0) % MCV (80.0-98.0) fL MCH (27.0-33.0) pg MCHC (31.0-35.0) g/dl RDW (11.0-16.0) % Plt Count (160-400) X10*3/uL MPV (9.4-12.3) fL Immature Gran % (Auto) (0.0-0.4) % Neut % (Auto) (45-73) % Lymph % (Auto) (20-40) % [place] % (Auto) (2-11) % Eos % (Auto) (0-4) % Baso % (Auto) (0-2) % Lymph # (Auto) (1.2-4.9) X10*3/uL [place] # (Auto) (0.1-1.2) X10*3/uL Eos # (Auto) (0.0-0.4) X10*3/uL Baso # (Auto) (0.0-0.2) X10*3/uL Abs Immat Gran (auto) (0.00-0.03) X10*3/uL Absolute Neuts (auto) (2.0-8.3) x10*3/uL Absolute Nucleated RBC (0.0-0.012) X10*3/uL Nucleated RBC % (auto) (0.0-0.2) /100WBC Smear Tech's Comments PT 13.1 (11.1-13.3) SEC INR 1.1 (0.9-1.1) Sodium (135-145) mmol/L Potassium (3.3-5.1) mmol/L Chloride (96-108) mmol/L Carbon Dioxide (22-29) mmol/L Anion Gap (12-20) BUN (9-16) mg/dL Creatinine (0.5-1.4) mg/dL Estim Creat Clear Calc Estimated GFR Random Glucose (60-115) mg/dL Calcium (8.4-10.2) mg/dL Total Bilirubin (0.0-1.0) mg/dL AST (5-31) U/L ALT (0-31) U/L Alkaline Phosphatase (39-117) U/L Total Protein (6.5-8.0) g/dL Albumin (3.5-5.0) g/dL Beta HCG, Quant mIU/mL Urine Color Urine Appearance Urine pH (5.0-9.0) Ur Specific [place] (1.005-1.025) Urine Protein (Neg-Trace) mg/dL Urine Glucose (UA) (Negative) mg/dL Urine Ketones (Negative) mg/dL Urine Blood (Negative) Urine Nitrite (Negative) Ur Leukocyte Esterase (Negative) Urine RBC (0-2) /HPF Urine WBC (0-5) /HPF Ur Squamous Epith Cells (0-2) /HPF Calcium Oxalate Crystal Urine Bacteria (None Seen) Hyaline Casts (0-2) /LPF Blood Type Antibody Screen Independent Interpretation I performed an independent interpretation of an: Ultrasound (Positive mass in the left adnexal area) Medications Administered Generic Name Dose Route Start Last Admin Trade Name Freq PRN Reason Stop Dose Admin Sodium Chloride 1,000 mls @ 999 mls/hr 11/29/23 10:45 11/29/23 10:36 Ns IV 11/29/23 11:45 999 mls/hr .[id number] WARREN Administration Critical Care Time Critical Care Time Critical Care Time: Yes Total Critical Care Time: 35 Attestation: I have personally provided 35 minutes of critical care time exclusive of time spent on separately billable procedures. ?Time includes review of lab data, radiology results, discussion with consultants, and monitoring for potential decompensation. ?Interventions were performed as documented above Discharge Plan Discharge Clinical Impression: Ectopic Patient Disposition: Xfer Acute Care Hospital Transfer Details: Transferred to [facility] Prescriptions: No Action pantoprazole [Protonix] [address] for susp in packet 40 mg PO DAILY Qty: 30 0RF ibuprofen 100 mg/5 mL suspension 400 mg PO Q6H PRN (Reason: pain) Qty: 118 0RF Print Language: Belarusian
--- NOTE | 2023-11-29 09:05 | PC.NURSE ---
Pt taken to ultrasound
--- NOTE | 2023-11-29 09:32 | PM.GYNCN ---
WIGS SALESPERSON - CN: HPI Data of Consult Consult date: 11/29/23 Primary Care Provider: Unknown Physician Consult Narrative Narrative: I was consulted on Mary Barrera who is a 38 year old female presenting with 3 day history of vaginal spotting and mild pelvic pain that started yesterday . LMP is 10/15 making her by today at six weeks and 2 days of gestation. Workup done in the emergency room including hCG level of 5229, H&H within normal, AST/ALT, creatinine within normal. Blood type B positive Pelvic ultrasound , report is not available, unofficial reading to Dr. ROMAN reported a left adnexal mass with gestational sac and yolk sac measuring 1.8 by 1.6 x 1.4 cm. No free fluid in the cul-de-sac cc:: CC: OB [facility] Surgical History Surgical History History of cholecystectomy H/O lumpectomy Social History Social History Alcohol intake: current Alcohol intake frequency: holidays/special occasions only Smoked in Last 30 Days: No Use of substances other than those prescribed or required for medical reasons: No Substance Use Type: Marijuana Advance Directives: No Advance Directives Information Provided: No Do you have a plan to hurt others: No Plan Patient : Yes Meds Allergies Allergy/AdvReac Type Severity Reaction Status Date / Time diphenhydramine Allergy Unknown SEIZURE Verified 11/29/23 05:00 [From BENADRYL] tramadol [TRAMADOL] Allergy Unknown LOCKS UP Verified 11/29/23 05:00 INSIDES oxycodone [From Percocet] Allergy Abdominal Verified 11/29/23 05:00 Pain WIGS SALESPERSON Physical Exam Vitals Vital signs: Temp Pulse Resp BP Pulse Ox O2 Del Method 98.0 F 70 18 121/56 L 98 Room Air 11/29/23 08:00 11/29/23 08:00 11/29/23 08:00 11/29/23 08:00 11/29/23 08:00 11/29/23 08:00 BMI result Body Mass Index 24.1 Abdomen Auscultation/Inspection/Palpation: Soft, Non-distended and No tenderness WIGS SALESPERSON - Results Labs 11/29/23 05:07 11/29/23 05:07 Labs: Short CBC 11/29/23 Range/Units 05:07 WBC 5.3 (4.8-10.8) X10*3/uL Hgb 13.0 (12.0-16.0) g/dl Hct 37.3 (37.0-47.0) % Plt Count 338 (160-400) X10*3/uL BMP 11/29/23 05:07 Sodium 139 Potassium 3.5 Chloride 109 H Carbon Dioxide 22 BUN 7 L Creatinine 0.82 Calcium 9.3 Liver Function 11/29/23 Range/Units 05:07 Total Bilirubin 0.7 (0.0-1.0) mg/dL AST 12 (5-31) U/L ALT 12 (0-31) U/L Alkaline Phosphatase 56 (39-117) U/L Albumin 4.0 (3.5-5.0) g/dL Urine 11/29/23 Range/Units 05:13 Urine Color Yellow Urine Appearance Hazy Urine pH 6.0 (5.0-9.0) Ur Specific [place] >= 1.030 H (1.005-1.025) Urine Protein Negative (Neg-Trace) mg/dL Urine Glucose (UA) Negative (Negative) mg/dL Assessment and Plan (1) Ectopic : Status: Acute Discussed with the patient the findings on ultrasound 1.8 cm left adnexal mass ectopic with no evidence of intrauterine , also discussed the patient the level of HCG a 5229 . Explained to the patient the treatment options including the following: Option 1 is methotrexate treatment; explained to the patient that the level of hCG above 5000 is a relative contraindication to methotrexate treatment because it is associated with higher failure rate ; therefore, she is a candidate for multi dose regimen to decrease the failure rate. All the pros and cons risks and benefits of this approach were discussed with the patient including but not limited to, failure rate, possible exposure of methotrexate teratogenicity to an early intrauterine not diagnosed by ultrasound with the risk of SAB and severe deformities, possibility of a early intrauterine . Discussed with the patient the common side effects of the medication, including skin rash, sensitivity to the sun, indigestion, nausea, sore mouth were discussed with the patient. Less common side effects (occurring in less than 2% of patients) were also discussed a drop in blood cell counts or temporary elevation in liver enzymes. Option 2 discussed with the patient surgical management as a alternative options including laparoscopic left salpingostomy versus partial salpingectomy, given the level of hCG above 5000 is a relative contraindication to methotrexate. All pros and cons risks and benefits of the procedure were discussed with the patient. The patient decided to proceed with methotrexate treatment. I checked with the charge nurse in the emergency room, there is no available certified chemotherapy RN over the weekend to administer the 2nd dose of methotrexate on day 4. Therefore, recommended to transfer the patient to [facility] for further management , more resources are available. All questions were answered pt verbalized understanding and agreed with the transfer. Discussed the case with Dr. Roman in the emergency room.
[2023-11-29 09:55] LABS: INTERNATIONAL NORM RATIO 1.1 (0.9-1.1); Prothrombin Time 13.1 SEC (11.1-13.3)
[2023-11-29] MEDS: 0.9 % Sodium Chloride 1,000 ML 999 ML IV (10:36)
[2023-11-29 11:42] VITALS: BP 121/56; PULSE 70; RESP 18; TEMP 36.7; O2SAT 98
[2023-11-29 12:00] VITALS: BP 121/56; PULSE 70; RESP 18; TEMP 36.7; O2SAT 99
== END 2023-11-29 12:04 | disposition short-term general hospital (02) ==
PROVIDERS: Emergency Provider Emergency Medicine Emergency Medical Services
DX: O00.90 Unspecified ectopic pregnancy without intrauterine pregnancy (principal); R10.30 Lower abdominal pain, unspecified
CPT/HCPCS: 36415; 76801; 76817; 80053; 81001; 84702; 85025; 85610; 86850; 86900; 86901; 87086; 96360; 99285

== ENCOUNTER → 2023-11-29 08:25 | Outpatient (BNV) | payer OTHER, SELFPAY | PROVIDERS: Emergency Provider Emergency Medicine Emergency Medical Services; Visit Provider Obstetrics & Gynecology | DX: O00.90 Unspecified ectopic pregnancy without intrauterine pregnancy (principal) | CPT/HCPCS: 99283 ==

== ENCOUNTER 2024-10-27 07:38 | Inpatient (IN) | payer OTHER, SELFPAY ==
--- NOTE | ~2024-10-27 | CT_ITS ---
CLINICAL HISTORY: L dental abcess? CT maxillofacial with contrast Comparison: None provided Findings: No acute fractures. No dislocations. Temporomandibular joints are intact. Paranasal sinuses and mastoid air cells clear. Orbital contents within normal limits. Visualized intracranial contents are within normal limits. No foreign bodies. Significant left-sided facial edema with skin thickening and reticulation of the subcutaneous and deep fat. No current drainable fluid collection identified. Prominent left-sided periapical lucency involving left-sided lower molars. IMPRESSION: Prominent left-sided maxillary dental caries with significant resulting surrounding edema but no current drainable abscess identified. This document has been electronically signed by: Ag Viera MD on 10/27/2024 10:30:05
[2024-10-27 07:41] VITALS: BP 142/83; PULSE 96; RESP 18; TEMP 36.8; O2SAT 100; BMI 24.1
[2024-10-27 07:54] LABS: MANUAL DIFF FLAG NO
[2024-10-27 08:09] LABS: Hematocrit 38.0 % (37.0-47.0); Hemoglobin 13.4 g/dl (12.0-16.0); Imm Gran Abs Auto 0.02 X10*3/uL (0.00-0.03); Imm Gran Pct Auto 0.2 % (0.0-0.4); Lymphocytes Absolute Auto 1.8 X10*3/uL (1.2-4.9); Mean Corpuscular HGB Conc 35.3 g/dl (31.0-35.0); Mean Corpuscular Hemoglobin 29.8 pg (27.0-33.0); Mean Corpuscular Volume 84.4 fL (80.0-98.0); NRBC Abs Auto 0.000 X10*3/uL (0.0-0.012); NRBC Pct Auto 0.0 /100WBC (0.0-0.2); Platelet Count 372 X10*3/uL (160-400); Red Blood Count 4.50 X10*6/uL (4.20-5.50); White Blood Count 8.5 X10*3/uL (4.8-10.8)
[2024-10-27 08:15] LABS: Alanine Aminotransferase 30 U/L (0-31); Albumin Level 4.1 g/dL (3.5-5.0); Alkaline Phosphatase 64 U/L (39-117); Anion Gap 15 (12-20); Aspartate Amino Transferase 24 U/L (5-31); Blood Urea Nitrogen 6 mg/dL (9-16); Calcium 9.0 mg/dL (8.4-10.2); Carbon Dioxide 20 mmol/L (22-29); Chloride 106 mmol/L (96-108); Creatinine Clr Calc Pharmacy 76.8; Estimated Glomerular Filt Rate > 60; Potassium 3.6 mmol/L (3.3-5.1); Sodium 137 mmol/L (135-145); Total Protein 7.4 g/dL (6.5-8.0)
--- NOTE | 2024-10-27 08:36 | ED_ITS ---
HPI - Dental/Oral General Chief complaint: Dental/Oral Stated complaint: Dental Time Seen by Provider: 10/27/24 08:06 Source: patient Mode of arrival: ambulatory Limitations: no limitations History of Present Illness ED Provider: АЛЕКСАНДР Willinghma HPI Narrative: 39-year-old female without significant medical history presents to the emergency department with complaints of dental pain ongoing for the past few weeks worsening. Patient reports that on October 09 she had a dental appointment where they did imaging and they told her that she had a filling that had correct and had nerve exposed to 1 of her left lower molars. Since then she has been having pain she has reached out to them multiple times in regards to the pain however they never responded back. Because of this she decided to go to urgent care yesterday where they prescribed her penicillin which she had it has been taking since yesterday morning. She reports severe 10/10 dental pain radiating into her neck, she reports this morning she woke up with significant left-sided facial swelling, difficulty swallowing and overall feeling unwell. She is not drooling, no changes in voice denies fevers, chills, chest pain, shortness of breath, nausea, vomiting, abdominal pain. No facial trauma. Related Data Previous Rx's ?Medication ?Instructions ?Recorded pantoprazole 40 mg granules 40 mg PO DAILY #30 ea 11/18 11/09 delayed-release for susp in packet (Protonix) ibuprofen 100 mg/5 mL oral 400 mg (20 mL) PO Q6H PRN p ain 10/08/23 suspension #118 mL Allergies Allergy/AdvReac Type Severity Reaction Status Date / Time diphenhydramine (From Allergy Unknown SEIZURE Verified 10/27/24 07:45 BENADRYL) tramadol (TRAMADOL) Allergy Unknown LOCKS UP Verified 10/27/24 07:45 INSIDES oxycodone (From Percocet) Allergy Abdominal Verified 10/27/24 07:45 Pain Review of Systems 2 Review of Systems: Yes all other systems are reviewed and are negative PMFSH Past Medical History Attestation statement: The following information was validated with the patient. Source: old records reviewed and nursing notes reviewed Surgical History History of cholecystectomy H/O lumpectomy Social History Social History Alcohol intake: current Alcohol intake frequency: holidays/special occasions only Smoked in Last 30 Days: No Substance Use Type: Marijuana Substance Use Frequency: Occasionally Substance Use Frequency Other:: thc gummys Advance Directives: No Advance Directives Information Provided: Yes Patient : No Physical Exam 2 Exam: Exam: Appearance: Alert.? Oriented X3.? No acute distress.? Head: Normocephalic, atraumatic, no step-offs or deformities Eyes: Pupils equal, round and reactive to light.? ENT: Pharynx normal.?Patient airway. + left sided facial swelling over angle of the mandible, + swelling noted to the left gum from the midline all the way to the back. Normal hard and soft palate. Neck: Normal inspection.? Neck supple.? CVS: Normal heart rate and rhythm.? Pulses normal.? Respiratory: No respiratory distress.? Breath sounds normal.? Abdomen: Soft and nontender.? Skin: Skin warm and dry.? Normal skin color.? Normal skin turgor.? Extremities: No lower extremity edema.? No calf ttp. 5/5 strength to bilateral upper and lower extremities Back: No midline tenderness, no C-spine tenderness, full range of motion, no CVA tenderness bilaterally Neuro: Oriented X 3.? No motor deficit.? No sensory deficit. CN 2-12 intact Vital Signs: Vital Signs: Last Vital Signs Temp 98.3 F 10/27/24 07:41 Pulse 96 10/27/24 07:41 Resp 18 10/27/24 07:41 BP 142/83 H 10/27/24 07:41 Pulse Ox 100 10/27/24 07:41 O2 Del Method Room Air 10/27/24 07:41 BMI result Body Mass Index 24.1 vss Course Reevaluation(s) Reevaluation #1: CBC unremarkable. Chemistry no acute findings needing intervention. Negative beta hCG. Negative lactic. Significantly elevated CRP 1.58. Time: 08:00 Reevaluation #2: Delay nurse giving antibiotics as the pharmacy message the nurse stating that they were experiencing issues with patient labeled printer so it would be awhile for us to get that antibiotic. Time: 08:55 Reevaluation #3: Imaging pending. Time: 09:18 Additional Reevaluation(s): CT scan with prominent left-sided maxillary dental caries with significant surrounding edema but no drainable abscess. Will continue with IV antibiotics and steroids as she is having difficulty swallowing. Also reporting headache and feeling unwell will give morphine and Toradol at this time. Her neurological exam is nonfocal. [id number] Plan at this time is hospital admission. Patient agreeable to this. She is feeling better. Medications Administered Discontinued Medications Generic Name Dose Route Start Last Admin Trade Name Freq PRN Reason Stop Dose Admin Dexamethasone Sodium Phosphate 10 mg 10/27/24 08:37 10/27/24 08:56 Dexamethasone Sod Phosphate 10 Mg/Ml Vial IVPUSH 10/27/24 08:38 10 mg ONCE ONE Administration Clindamycin Phosphate 300 mg in 50 mls @ 100 mls/hr 10/27/24 08:36 10/27/24 10:36 Cleocin IV 10/27/24 09:05 100 mls/hr ONCE ONE Administration Iohexol 85 ml 10/27/24 09:17 10/27/24 09:17 Iohexol 350 Mg/Ml 100 Ml Infus..Btl IV 10/27/24 09:18 85 ml ONCE ONE Administration Ketorolac Tromethamine 15 mg 10/27/24 10:28 10/27/24 10:36 Ketorolac Tromethamine 15 Mg/Ml Vial IVPUSH 10/27/24 10:29 15 mg ONCE ONE Administration Morphine Sulfate 2 mg 10/27/24 08:37 10/27/24 08:56 Morphine Sulfate 2 Mg/Ml Cartridge IVPUSH 10/27/24 08:38 2 mg ONCE ONE Administration Protocol Morphine Sulfate 2 mg 10/27/24 10:28 10/27/24 10:36 Morphine Sulfate 2 Mg/Ml Cartridge IVPUSH 10/27/24 10:29 Not Given ONCE ONE Protocol Ondansetron HCl 4 mg 10/27/24 08:37 10/27/24 08:56 Ondansetron Hcl 4 Mg/2 Ml Vial IVPUSH 10/27/24 08:38 4 mg ONCE ONE Administration Medical Decision Making Medical Decision Making [facility] Narrative: [id number] 39 year old female presents w/ dental pain X few weeks and facial swelling x 1 day PE + left sided facial swelling over angle of the mandible, + swelling noted to the left gum from the midline all the way to the back. Normal hard and soft palate. Hx and PE concerning for dental infection w/ possible subsequent dental abscess or developing abcess. No signs of threat to airway on exam. No signs of Ludwigs. No cellulitis noted Plan- labs, imaging. Will also give morphine for pain, and zofran to prevent nausea. Will cover with clindamysin for infection. Differential Diagnosis Differential Diagnoses: The differential diagnosis associated with the presentation includes (Hx and PE concerning for dental infection w/ possible subsequent dental abscess or developing abcess. No signs of threat to airway on exam. No signs of Ludwigs. No cellulitis noted ) Admission/Observation Consideration of admission/observation: Escalation of care including admission/observation considered (Likely ) Lab Data MDM Lab Attestation statement: I reviewed the patient's lab results. 10/27/24 07:50 10/27/24 07:50 Labs: Lab Results 10/27/24 10/27/24 Range/Units 07:50 08:51 WBC 8.5 (4.8-10.8) X10*3/uL RBC 4.50 (4.20-5.50) X10*6/uL Hgb 13.4 (12.0-16.0) g/dl Hct 38.0 (37.0-47.0) % MCV 84.4 (80.0-98.0) fL MCH 29.8 (27.0-33.0) pg MCHC 35.3 H (31.0-35.0) g/dl RDW 11.6 (11.0-16.0) % Plt Count 372 (160-400) X10*3/uL MPV 9.5 (9.4-12.3) fL Immature Gran % (Auto) 0.2 (0.0-0.4) % Neut % (Auto) 68.0 (45-73) % Lymph % (Auto) 21.4 (20-40) % [place] % (Auto) 9.8 (2-11) % Eos % (Auto) 0.2 (0-4) % Baso % (Auto) 0.4 (0-2) % Lymph # (Auto) 1.8 (1.2-4.9) X10*3/uL [place] # (Auto) 0.8 (0.1-1.2) X10*3/uL Eos # (Auto) 0.0 (0.0-0.4) X10*3/uL Baso # (Auto) 0.0 (0.0-0.2) X10*3/uL Abs Immat Gran (auto) 0.02 (0.00-0.03) X10*3/uL Absolute Neuts (auto) 5.8 (2.0-8.3) x10*3/uL Absolute Nucleated RBC 0.000 (0.0-0.012) X10*3/uL Nucleated RBC % (auto) 0.0 (0.0-0.2) /100WBC ESR 17 (0-20) MM/HR Sodium 137 (135-145) mmol/L Potassium 3.6 (3.3-5.1) mmol/L Chloride 106 (96-108) mmol/L Carbon Dioxide 20 L (22-29) mmol/L Anion Gap 15 (12-20) BUN 6 L (9-16) mg/dL Creatinine 0.83 (0.5-1.4) mg/dL Estim Creat Clear Calc 76.8 Estimated GFR > 60 Random Glucose 134 H (60-115) mg/dL Lactic Acid 1.6 (0.5-2.0) mmol/L Calcium 9.0 (8.4-10.2) mg/dL Total Bilirubin 0.9 (0.0-1.0) mg/dL AST 24 (5-31) U/L ALT 30 (0-31) U/L Alkaline Phosphatase 64 (39-117) U/L C-Reactive Protein 1.58 H (< or = 0.50) mg/dL Total Protein 7.4 (6.5-8.0) g/dL Albumin 4.1 (3.5-5.0) g/dL Estrogen Cancelled Beta HCG, Quant < 2 mIU/mL Independent Interpretation I performed an independent interpretation of an: CT Scan (IMPRESSION: Prominent left-sided maxillary dental caries with significant resulting surrounding edema but no current drainable abscess identified.) Radiology Impression Discussion of test interpretation with radiology: I have reviewed the radiologist's reading. External Record Review External record reviewed: Inpatient record, Office record, Outpatient record, Prior outpatient labs, Prior outpatient radiology, Primary care record and Outside ED record Prescription Management I considered prescription management with: Pain Medication and Antibiotic Critical Care Time Critical Care Time Critical Care Time: Yes Total Critical Care Time: 45 Attestation: I attest to this time spent taking care of the patient, obtaining history, physical, reviewing labs, imaging, treatment of patients condition +/- specialist/hospitalist consult +/- procedure Discharge Plan Discharge Clinical Impression: Toothache, Facial swelling, Dental caries Prescriptions: No Action pantoprazole [Protonix] [address] for susp in packet 40 mg PO DAILY Qty: 30 0RF ibuprofen 100 mg/5 mL suspension 400 mg PO Q6H PRN (Reason: pain) Qty: 118 0RF Print Language: Micronesian
--- NOTE | 2024-10-27 09:03 | PC.NURSE ---
pt medicated per orders for 10/10 pain.
--- NOTE | 2024-10-27 09:04 | PC.NURSE ---
abx: abx were not availale in pyxis, this nurse tiger texted the pharmacy, return message from pharmacy stated we're just experiencing issues with our patient label paster so it may take a while ut once its up and running we can send that down for you provider has been made aware and we will hang the abx as soon as it is available.
[2024-10-27] MEDS: iohexoL 350 MG/ML 100 ML INFUS..BTL 85 ML IV (09:17)
--- NOTE | 2024-10-27 09:51 | PC.NURSE ---
pt continues to have 10/10 lt facial pain and upon returning to the room from CT scan she had c/o rt rib area pain as well that was coming in waves. provider has been notified, call gunter within reach, plan of care ongoing
--- NOTE | 2024-10-27 11:04 | PM.IMHP ---
History of Present Illness Date of Service: 10/27/24 Attending physician on admission: Liam Jaramillo Chief Complaint: facial swelling This is a 39-year-old female who presents to the emergency department with facial swelling. She says she was initially seen by her dentist on October 09 and they told her that one of her feelings has been done incorrectly and created an infection in her mouth. She was waiting for them to send her antibiotics to the pharmacy and reportedly called the office multiple times but was never prescribed any antibiotics. A root canal was scheduled for October 31. However over the past several days she has reported increasing pain and swelling in her mouth and face. She was seen at urgent care yesterday and prescribed penicillin but overnight the swelling became substantially worse so she presented to the emergency department today for evaluation. In the emergency department she is afebrile lab work reveals no leukocytosis. She had a CAT scan of the face which showed no evidence of fluid collection or drainable abscess. She received a dose of IV clindamycin and IV steroids in the decision was made to admit her for further management. Review of Systems Review of Systems: Yes all other systems are reviewed and are negative Constitutional: Constitutional: Reports chills and Denies fever(s) Cardiovascular: Cardiovascular: Denies chest pain, Denies palpitations and Denies dyspnea Respiratory: Respiratory: Denies cough and Denies dyspnea Gastrointestinal: Gastrointestinal: Denies abdominal pain Endocrine: Endocrine: Denies palpitations [facility] Surgical History History of cholecystectomy H/O lumpectomy Social History Alcohol intake: current Alcohol intake frequency: holidays/special occasions only Patient Tobacco Use Status: Never used Tobacco Smoked in Last 30 Days: No Substance Use Type: Marijuana Substance Use Frequency: Occasionally Substance Use Frequency Other:: thc gummys Advance Directives: No Advance Directives Information Provided: Yes Patient : No Meds Allergies Allergy/AdvReac Type Severity Reaction Status Date / Time diphenhydramine (From Allergy Unknown SEIZURE Verified 10/27/24 07:45 BENADRYL) tramadol (TRAMADOL) Allergy Unknown LOCKS UP Verified 10/27/24 07:45 INSIDES oxycodone (From Percocet) Allergy Abdominal Verified 10/27/24 07:45 Pain Active Medications: Current Medications Acetaminophen (Acetaminophen 325 Mg Tablet) 650 mg PO Q6H PRN PRN Reason: Pain, Mild 1-3,fever,headache Calcium Carbonate (Calcium Carbonate 750 Mg Tab.Chew) 750 mg PO Q4H PRN PRN Reason: Heartburn Docusate Sodium (Docusate Sodium 100 Mg Capsule) 100 mg PO BEDTIME WARREN Magnesium Hydroxide (Milk Of Magnesia 30 Ml Oral.Susp) 30 ml PO DAILY PRN PRN Reason: Constipation Melatonin (Melatonin 3 Mg Tablet) 6 mg PO BEDTIME PRN PRN Reason: Insomnia Ondansetron HCl (Ondansetron Hcl 4 Mg/2 Ml Vial) 4 mg IVPUSH Q8H PRN PRN Reason: Nausea and Vomiting Sodium Chloride (0.9 % Sodium Chloride Flush 3 Ml Syringe) 3 ml IVFLUSH QSHIFT WARREN Physical Exam Vital Signs and Narrative: Vital Signs: Last Vital Signs Temp 98.3 F 10/27/24 07:41 Pulse 96 10/27/24 07:41 Resp 18 10/27/24 07:41 BP 142/83 H 10/27/24 07:41 Pulse Ox 100 10/27/24 07:41 O2 Del Method Room Air 10/27/24 07:41 BMI result Body Mass Index 24.1 Const: General: cooperative, alert and awake Nutritional Appearance: average body habitus Orientation/consciousness: patient oriented x3 HEENT: Other: left facial swelling /left side lower lip swelling Resp: Effort & Inspection: normal respiratory effort, able to speak in complete sentences, no respiratory distress and no use of accessory muscles Neuro: General: patient oriented x3, moves all extremities and CN's II-XI intact bilaterally Results Labs 10/27/24 07:50 10/27/24 07:50 Labs: Laboratory Results - last 24 hr 10/27/24 10/27/24 07:50 08:51 MCV 84.4 MCH 29.8 MCHC 35.3 H RDW 11.6 Plt Count 372 MPV 9.5 Immature Gran % (Auto) 0.2 Neut % (Auto) 68.0 Lymph % (Auto) 21.4 [place] % (Auto) 9.8 Eos % (Auto) 0.2 Baso % (Auto) 0.4 Lymph # (Auto) 1.8 [place] # (Auto) 0.8 Eos # (Auto) 0.0 Baso # (Auto) 0.0 Abs Immat Gran (auto) 0.02 Absolute Neuts (auto) 5.8 Absolute Nucleated RBC 0.000 Nucleated RBC % (auto) 0.0 ESR 17 Anion Gap 15 Estim Creat Clear Calc 76.8 Estimated GFR > 60 Random Glucose 134 H Lactic Acid 1.6 Calcium 9.0 Total Bilirubin 0.9 AST 24 ALT 30 Alkaline Phosphatase 64 C-Reactive Protein 1.58 H Total Protein 7.4 Albumin 4.1 Estrogen Cancelled Beta HCG, Quant < 2 Assessment and Plan (1) Facial swelling: Status: Acute Plan This is a 39-year-old female with no significant past medical history who presents to the emergency department with facial swelling after failing outpatient oral penicillin for dental infection Dental infection/facial cellulitis due to dental carries No abscess seen on CT scan. No evidence of sepsis IV Unasyn with likely transition to oral Augmentin upon discharge Chlorhexidine mouthwash Has scheduled root canal for October 31 No difficulty swallowing managing secretions Med reconciliation pending at the time of admission. Patient denies taking any medication on daily basis DVT prophylaxis-low risk, early ambulation Quality Stroke Does the patient have a stroke diagnosis?: No VTE Prior VTE?: No VTE Risk Level:: Medical - moderate - high VTE Device Contraindication: Treatment Not Indicated VTE Drug Contraindication: Treatment Not Indicated
--- NOTE | 2024-10-27 11:57 | PC.NURSE ---
pt changed over to inpt hospital bed for comfort.
--- NOTE | 2024-10-27 12:12 | PHA.MEDREC ---
Addendum entered by Torres Chisholm, PharmJoni 10/27/24 12:40: MED REC CHECKED BY [facility] Original Note: Pharmacy Consult ? Medication Reconciliation Pharmacy has completed the medication reconciliation. Spoke to patient. Patient confirms only taking penicillin V potassium 500 mg (ends 11/05/24) and chlorhexidine 0.12% mouthwash. Patient states taking albuterol PRN although theres no claim history left off med list. Medication last taken 10/27/24 8am.
[2024-10-27 12:34] VITALS: BP 124/80; PULSE 73; RESP 18; O2SAT 100
--- NOTE | 2024-10-27 14:32 | PC.NURSE ---
pt a&ox3, ambulatory with steady gait, pt refusing morphine for pain as she didnt like the way it made her feel, pt states the toradol helped alot and she can speak now. pt was told she has a bed and report was put in, plan of care ongoing
[2024-10-27 14:42] VITALS: BMI 25.1
[2024-10-27] MEDS: 0.9 % Sodium Chloride Flush 3 ML SYRINGE IVFLUSH ×2 (15:35→20:54)
[2024-10-27 15:37] VITALS: BP 128/90; PULSE 66; RESP 18; TEMP 36.4; O2SAT 100
[2024-10-27 19:27] VITALS: BP 136/79; PULSE 61; RESP 18; TEMP 36.2; O2SAT 100
[2024-10-27] MEDS: Chlorhexidine Gluc Oral Rinse 15 ML MOUTHWASH BUCCAL (20:53)
[2024-10-28 03:52] VITALS: BP 138/71; PULSE 78; RESP 18; TEMP 36.4; O2SAT 100
[2024-10-28 07:05] VITALS: BP 120/68; PULSE 73; RESP 16; TEMP 36.6
[2024-10-28] MEDS: 0.9 % Sodium Chloride Flush 3 ML SYRINGE IVFLUSH ×2 (09:16→14:14)
[2024-10-28] MEDS: Chlorhexidine Gluc Oral Rinse 15 ML MOUTHWASH BUCCAL ×2 (09:16→21:06)
--- NOTE | 2024-10-28 09:32 | P.PNIM_ITS ---
Subjective Subjective Date of Service: 10/28/24 Review of Systems Follow up dental abscess Swelling improved, less pain today Physical Exam 2 Exam: Exam: Appearing in no acute distress Facial edema to left side, no visible abscess lung sounds are clear to auscultation heart regular rate rhythm, clear S1, S2 positive bowel sounds, abdomen is soft, nontender neuro patient is alert x3, no focal deficits Vital Signs: Vital Signs: Last Vital Signs Temp 97.9 F 10/28/24 07:05 Pulse 73 10/28/24 07:05 Resp 16 10/28/24 07:05 BP 120/68 10/28/24 07:05 Pulse Ox 100 10/28/24 03:52 O2 Del Method Room Air 10/28/24 07:05 BMI result Body Mass Index 25.1 Objective Data Active Medications Acetaminophen (Acetaminophen 325 Mg Tablet) 650 mg PO Q6H PRN PRN Reason: Pain, Mild 1-3,fever,headache Calcium Carbonate (Calcium Carbonate 750 Mg Tab.Chew) 750 mg PO Q4H PRN PRN Reason: Heartburn Chlorhexidine Gluconate (Chlorhexidine Gluc Oral Rinse 15 Ml Mouthwash) 15 ml BUCCAL BID [facility] Last Admin: 10/28/24 09:16 Dose: 15 ml Documented By: JUJU Docusate Sodium (Docusate Sodium 100 Mg Capsule) 100 mg PO BEDTIME [facility] Last Admin: 10/27/24 20:53 Dose: 100 mg Documented By: BRUNILDA Ampicillin Sodium/Sulbactam (Sodium 3 gm/ Sodium Chloride) 100 mls @ 200 mls/hr IV Q6H [facility] Last Admin: 10/28/24 09:16 Dose: 200 mls/hr Documented By: JUJU Ketorolac Tromethamine (Ketorolac Tromethamine 15 Mg/Ml Vial) 15 mg IVPUSH Q6H PRN PRN Reason: Pain, Moderate(Pain Scale 4-6) Last Admin: 10/28/24 06:41 Dose: 15 mg Documented By: BRUNILDA Magnesium Hydroxide (Milk Of Magnesia 30 Ml Oral.Susp) 30 ml PO DAILY PRN PRN Reason: Constipation Melatonin (Melatonin 3 Mg Tablet) 6 mg PO BEDTIME PRN PRN Reason: Insomnia Morphine Sulfate (Morphine Sulfate 2 Mg/Ml Cartridge) 2 mg IVPUSH Q4H PRN; Protocol PRN Reason: Pain, Severe (Pain Scale 7-10) Ondansetron HCl (Ondansetron Hcl 4 Mg/2 Ml Vial) 4 mg IVPUSH Q8H PRN PRN Reason: Nausea and Vomiting Sodium Chloride (0.9 % Sodium Chloride Flush 3 Ml Syringe) 3 ml IVFLUSH QSHIFT WARREN Last Admin: 10/28/24 09:16 Dose: 3 ml Documented By: JUJU Labs 10/27/24 07:50 10/27/24 07:50 Assessment and Plan (1) Facial swelling: Status: Acute (2) Dental caries: Status: Acute Plan 39-year-old female with no significant past medical history who presented to the emergency department with facial swelling after failing outpatient oral penicillin for dental infection Dental infection/facial cellulitis due to dental carries Less swelling noted No abscess seen on CT scan. No evidence of sepsis Continue IV Unasyn , transition to oral Augmentin upon discharge Chlorhexidine mouthwash Has scheduled root canal for October 31 No difficulty swallowing managing secretions plan is to complete 48 hrs of IV antibiotics DVT prophylaxis-low risk, early ambulation Quality Stroke Does the patient have a stroke diagnosis?: No VTE Prior VTE?: No VTE Risk Level:: Medical - moderate - high VTE Device Contraindication: Treatment Not Indicated VTE Drug Contraindication: Treatment Not Indicated
--- NOTE | 2024-10-28 13:32 | MHC.CM.PN ---
Pt self-care, lives at home with her partner and 3 children. Pts family will transport her home at discharge. Education provided on HCP, new one completed today and is now on file. PCP: Pt states she goes to the [facility], and doesn't have a main PCP. Local list of PCP's given to pt.
[2024-10-28 15:53] VITALS: BP 113/81; PULSE 71; RESP 18; TEMP 36.8; O2SAT 100
[2024-10-28 20:00] VITALS: BP 106/71; PULSE 70; RESP 16; TEMP 36.6; O2SAT 100
--- NOTE | 2024-10-29 | ECG_ITS ---
Test Reason : chest pain Blood Pressure : */* mmHG Vent. Rate : 59 BPM Atrial Rate : 117 BPM P-R Int : 142 ms QRS Dur : 96 ms QT Int : 436 ms P-R-T Axes : 30 38 -39 degrees QTcB Int : 431 ms Sinus bradycardia T wave abnormality, consider inferior ischemia T wave abnormality, consider anterolateral ischemia Abnormal ECG When compared with ECG of 20-Sep-2020 08:36, T wave inversion now evident in Anterior leads Referred By: Guilherme Sesay Electronically Signed By: Jonathan Gordon
[2024-10-29 03:47] VITALS: BP 117/73; PULSE 66; RESP 20; TEMP 36.5; O2SAT 100
--- NOTE | 2024-10-29 04:31 | PC.NURSE ---
Pt c/o of pressure pain to chest. Pt A&Ox4,resting in bed, no sign of distress, vital signs stable: HR 66, BP 117/73, O2 100% RA. Pt stated she feels like her heart is racing and having trouble breathing. Pt also stated that she's been having this pressure pain to chest since Monday, been on and off, no Hx of cardiac issues or anxiety. MD Sesay was notified of the situation. Per MD, ordered EKG, troponin, and cardiac monitoring via tele. Will continue to monitor pt's symptoms and cardiac rhythm on tele.
[2024-10-29 05:16] LABS: Troponin-I High Sensitivity < 2.7 ng/L (<3.5-17.0)
[2024-10-29 06:50] VITALS: BP 119/65; PULSE 76; RESP 16; TEMP 36.6; O2SAT 100
[2024-10-29] MEDS: Chlorhexidine Gluc Oral Rinse 15 ML MOUTHWASH BUCCAL (08:42)
[2024-10-29] MEDS: 0.9 % Sodium Chloride Flush 3 ML SYRINGE IVFLUSH (08:46)
--- NOTE | 2024-10-29 09:37 | PM.DS ---
DS: Providers Provider Date of Service: 10/29/24 Date of admission: 10/27/24 10:43 Date of discharge: 10/29/24 Primary care physician: Unknown Physician DS: Diagnosis Discharge Diagnosis (1) Facial swelling: Status: Acute (2) Dental caries: Status: Acute DS: Summary Hospital Course Hospital Course: History and physical as per admitting provider. This is a 39-year-old female who presents to the emergency department with facial swelling. She says she was initially seen by her dentist on October 09 and they told her that one of her feelings has been done incorrectly and created an infection in her mouth. She was waiting for them to send her antibiotics to the pharmacy and reportedly called the office multiple times but was never prescribed any antibiotics. A root canal was scheduled for October 31. However over the past several days she has reported increasing pain and swelling in her mouth and face. She was seen at urgent care yesterday and prescribed penicillin but overnight the swelling became substantially worse so she presented to the emergency department today for evaluation. In the emergency department she is afebrile lab work reveals no leukocytosis. She had a CAT scan of the face which showed no evidence of fluid collection or drainable abscess. She received a dose of IV clindamycin and IV steroids in the decision was made to admit her for further management. 39-year-old woman treated for dental infection and facial cellulitis secondary to dental caries. Swelling has significantly decreased. No abscess seen on CAT scan and no evidence of sepsis. Initially treated with IV Unasyn, we will be discharged with Augmentin for 7 days. She should continue chlorhexidine mouthwash. She will be sent home with high-dose ibuprofen, omeprazole and a few days of oxycodone. She has not appointment to see a dentist further management dental caries. Patient is stable for discharge home and understands all instructions. Time Attestation Discharge Coordination Time (in mins): 45 Quality: Safe Use of Opioids Does Pt have an Active Cancer Diagnosis on the Problem List?: No Quality: Stroke Does the patient have a stroke diagnosis?: No Physical Exam Exam: Exam: Appearing in no acute distress head is normocephalic atraumatic eyes pupils are PERRLA sclera is anicteric mouth throat mucous membranes are intact and moist neck is supple no lymphadenopathy, no JVD noted lung sounds are clear to auscultation heart regular rate rhythm, clear S1, S2 positive bowel sounds, abdomen is soft, nontender neuro patient is alert x3, no focal deficits Mild let sided facial swelling, no obvious abscess seen or open wound Vital Signs: Vital Signs: Last Vital Signs Temp 98 F 10/29/24 06:50 Pulse 76 10/29/24 06:50 Resp 16 10/29/24 06:50 BP 119/65 10/29/24 06:50 Pulse Ox 100 10/29/24 06:50 O2 Del Method Room Air 10/29/24 06:50 BMI result Body Mass Index 25.1 DS: Data Data Completed and Pending Labs on day of discharge: Laboratory Results - last 24 hr 10/29/24 04:43 Troponin I High Sens < 2.7 Preliminary micro results at discharge 10/27/24 08:51 Blood Culture - Preliminary Blood - Venous No growth after 24 hours. 10/27/24 08:51 Blood Culture - Preliminary Blood - Venous No growth after 24 hours. Discharge Plan Discharge Anticipated Discharge Date/Time: 10/29/24 09:32 Patient Disposition: Home, Self-Care Discharge Diagnosis: Dental infection Facial swelling Discharge Medications: New chlorhexidine gluconate 0.12 % Mouthwash 15 ml buccal BID Qty: 473 0RF ibuprofen 800 mg tablet 800 mg PO Q6H PRN (Reason: pain) Qty: 20 0RF omeprazole magnesium [Prilosec OTC] 20 mg tablet,delayed release (DR/EC) 20 mg PO DAILY Qty: 10 0RF Rx Instructions: Take while taking high dose ibuprofen oxycodone 5 mg tablet 5 mg PO Q8H PRN (Reason: pain) Qty: 12 0RF Rx Instructions: Partial Fill upon patient request. amoxicillin-pot clavulanate 875-125 mg tablet 1 tab PO BID Qty: 14 0RF Continued chlorhexidine gluconate 0.12 % mouthwash 15 ml PO DIRECTED Discontinued penicillin V potassium 500 mg tablet 500 mg PO TID Discharge Orders: Discharge Order (Routine); Ordered 10/29/24 Ordered By: Shantell Naranjo Diet: Advance to usual diet Activity on Discharge: As tolerated Stand Alone Forms: Patient Portal Discharge page, Work/School Release Print Language: Belizean Care Plan Goals: Follow up with dentist for planned root canal Complete antibiotic treatment Health Concerns: Dental infection Facial swelling Plan of Treatment: Follow up with primary care provider as needed Take all medications as prescribed Assessment: See discharge summary Patient Instructions: Dental Abscess (GEN) Discharge Date/Time: 10/29/24 09:58
--- NOTE | 2024-10-29 09:45 | MHC.CM.PN ---
DP: PT HAS BEEN MEDICALLY CLEARED FOR DC HOME, NO SERVICES. FAMILY WILL TRANSPORT
== END 2024-10-29 09:58 | disposition home or self-care (01) | DRG 383 ==
LOC: HO.ED 10:37 → HO.EDOVER 11:01 → HO.S3 14:29
PROVIDERS: Physician Assistant; Student in an Organized Health Care Education/Training Program; Admitting Provider Physician Assistant Medical; Emergency Provider Emergency Medicine; Visit Provider Nurse Practitioner Acute Care
DX: L03.211 Cellulitis of face (principal); K02.9 Dental caries, unspecified; Z79.899 Other long term (current) drug therapy
CPT/HCPCS: 36415; 70487; 80053; 83605; 84484; 84702; 85025; 85652; 86140; 87040; 93005; 99221; 99285; J0295; J0736; J1100; J1885; J2270; J2405; Q9967

== ENCOUNTER → 2024-10-27 08:26 | Outpatient (BNV) | payer OTHER, SELFPAY | PROVIDERS: Admitting Provider Physician Assistant Medical; Emergency Provider Emergency Medicine; Visit Provider Radiology Vascular & Interventional Radiology | DX: R22.0 Localized swelling, mass and lump, head (principal) | CPT/HCPCS: 70487 ==

== ENCOUNTER 2024-10-27 10:43 | Outpatient (BNV) | payer OTHER, SELFPAY | END 2024-10-29 04:03 | PROVIDERS: Admitting Provider Physician Assistant Medical; Emergency Provider Emergency Medicine; Visit Provider Internal Medicine Cardiovascular Disease | DX: R00.1 Bradycardia, unspecified (principal) | CPT/HCPCS: 93010 ==

== ENCOUNTER → 2024-10-27 10:43 | Outpatient (BNV) | payer OTHER, SELFPAY | PROVIDERS: Admitting Provider Physician Assistant Medical; Emergency Provider Emergency Medicine; Visit Provider Physician Assistant Medical | DX: R22.0 Localized swelling, mass and lump, head (principal); K02.9 Dental caries, unspecified | CPT/HCPCS: 99223; 99232 ==

== ENCOUNTER 2024-11-07 15:30 | Outpatient (AMB) | payer OTHER, SELFPAY ==
--- NOTE | 2024-11-07 15:32 | A.OFFVIS_ITS ---
Vital Signs 11/07/24 15:33 Height 5 ft 3 in Weight 132 lb 11.492 oz BMI 23.5 BP 90/72 Blood Pressure Location Rt brachial Position Sitting Pulse 77 Pulse Source Pulse Oximeter Intake Visit Reasons: [facility] F/up ABN EKG [employer] Rec[employer]iter Required: No Allergies diphenhydramine (From BENADRYL) Allergy (Unknown, Verified 11/07/24 15:35) SEIZURE tramadol (TRAMADOL) Allergy (Unknown, Verified 11/07/24 15:35) LOCKS UP INSIDES oxycodone (From Percocet) Allergy (Verified 11/07/24 15:35) Abdominal Pain Medication List - Last Reconciled 11/07/24 by Katie Chapman, ADMITTED ATTORNEYS-C amoxicillin-pot clavulanate 875-125 mg 1 tab PO BID chlorhexidine gluconate 0.12% 15 mL buccal BID chlorhexidine gluconate 0.12% 15 mL PO DIRECTED ibuprofen 800 mg PO Q6H PRN omeprazole magnesium (Prilosec OTC) 20 mg PO DAILY oxycodone 5 mg PO Q8H PRN HPI HPI [facility] F/up ABN EKG: Details: Mirta is a 39-year-old female with no cardiac history who recently had EKG showing abnormal findings. She was referred to Cardiology. Today she presents for cardiology consultation. She reports no prior cardiac diagnoses. She does get discomfort in her mid chest that occurs randomly and with twisting of her torso. At times she will notice her heart beating fast for no obvious reason. These episodes do not cause her much concern and no associated symptoms. No shortness of breath, PND, orthopnea or edema. No lightheadedness, presyncope, syncope. 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 She smokes marijuana occasiona lly. Rare alcohol use. No known family history of heart disease. [facility], [facility] Surgical History History of cholecystectomy H/O lumpectomy Social History Household Members: Children Housing: Apartment Do you presently have visiting nurse or other home services: No Alcohol intake: current Alcohol intake frequency: holidays/special occasions only Patient Tobacco Use Status: Never used Tobacco Second Hand Smoke Exposure: No Substance Use Type: Marijuana service: No Review of Systems Const All systems reviewed & are unremarkable except as noted in HPI and below ENT Denies dizziness Card Reports chest pain (at times with movement), Denies chest pain at rest, Denies chest pain with activity, Reports rapid heart rate (heart beating fast a times for no reason), Denies pedal edema, Denies edema, Denies leg edema, Denies lightheadedness, Denies palpitations, Denies dyspnea, Denies dyspnea on exertion and Denies orthopnea Resp Denies cough, Denies dyspnea and Denies dyspnea on exertion GI Denies hematochezia and Denies change in stool character Musc Denies abnormal gait, Denies limited range of motion, Denies muscle cramps, Denies muscle weakness, Denies numbness, Denies radiating pain into limb, Denies stiffness and Denies tingling Neuro Denies abnormal gait, Denies dizziness, Denies numbness and Denies tingling Endo Denies palpitations Physical Exam Vital Signs: Last Vital Signs Pulse 77 11/07/24 15:33 BP 90/72 11/07/24 15:33 BMI result Body Mass Index 23.5 Const General: cooperative, healthy appearing, comfortable and no acute distress Orientation/consciousness: patient oriented x3 Neck Neck: Yes normal visual inspection Resp Effort & Inspection: normal respiratory effort Auscultation: clear to auscultation bilaterally, no rales, no rhonchi and no wheezes Cardio Rate: regular rate Rhythm: regular rhythm Heart sounds: S1 normal heart sound present, S2 normal heart sound present, no gallops, no murmurs and no rubs Neuro General: patient oriented x3 Extrem General: Yes normal to inspection, No no pedal edema and No calf tenderness Psych Appearance: grossly normal Mental Status: mental status grossly normal Speech and movement: Normal speech and movement present Assessment & Plan Assessment & Plan (1) Abnormal EKG: Code(s): R94.31 - Abnormal electrocardiogram [ECG] [EKG] Category: Medical Plan: EKG done 10/29/2024 reviewed, shows sinus bradycardia, T-wave inversions inferior and anterior lateral leads, rate 59. Prior EKG from 09/20/2020 shows sinus rhythm with nonspecific ST and T-wave abnormalities in the inferior lateral leads. No anginal symptoms though she does have some atypical discomfort. Low cardiac risk profile. Due to her abnormal EKG will order stress test with imaging: Exercise stress echocardiogram to assess for ischemia. Will order echocardiogram to assess for any structural heart disease. Reasons for tests discussed. Signs and symptoms of angina reviewed. Cardiology follow-up 2 months, sooner if needed. (2) Atypical chest pain: Code(s): R07.89 - Other chest pain Category: Medical Plan: As above (3) Palpitation: Code(s): R00.2 - Palpitations Category: Medical Plan: Report of rapid heartbeat at times with unclear trigger, without significant concerns. Pulse is regular on examination today. This may be sinus tachycardia she is feeling. Reviewed good hydration, reduction in stimulants. If symptoms persist will order Holter monitor. Plan I reviewed her abnormal EKG findings and discussed with the patient the need for a stress echocardiogram and a full echocardiogram to evaluate her heart function and structure. We talked about the low risk associated with her upcoming tooth extraction and that she may proceed with having it done. I explained that follow-up would be necessary to review the results of her cardiac tests and determine any further steps. Orders: Orders CA echo transthoracic complete Today R00.2 - Palpitations, R07.89 - Other chest pain, R94.31 - Abnormal electrocardiogram [ECG] [EKG] CA echo stress exercise Today R00.2 - Palpitations, R07.89 - Other chest pain, R94.31 - Abnormal electrocardiogram [ECG] [EKG] Patient Instructions: - Proceed with the scheduled dental procedure as planned. - Attend the stress echocardiogram and full echocardiogram appointments. - Attend follow-up visit to discuss test results and further management. Patient was informed and verbally consented to the use of an ambient scribe for clinic note documentation during this visit. Visit time spent on chart review, interview, assessment, orders, documentation. Coding Level of Care Code New Pt Level 3 (86898) Complex EM visit Add On G2211 Diagnoses Abnormal EKG R94.31 Atypical chest pain R07.89 Palpitation R00.2 Time Spent (min) 26
[2024-11-07 15:33] VITALS: BP 90/72; PULSE 77; BMI 23.5
--- OUTSIDE RECORDS SUMMARY | 2024-11-07 15:33 | XMS_ITS | Clinical Summary ---
Author Organization [facility] Address [address] [place] [address] Care Team Providers Care Senior Adults Director Name Role Phone Damion Pugh MD Primary Care Provider [phone] Surgical History Surgery Date Site/Laterality Comments CHOLECYSTECTOMY PROCEDURE: LAPAROSCOPY, CHOLECYSTECTOMY Family History Medical History Relation Name Comments Breast cancer Mother Relation Name Status Comments Brother Alive 2,healthy Father Alive healthy Mother Alive Social History Tobacco Use Types Packs/Day Years Used Date Smoking Tobacco: Never Smokeless Tobacco: Never Alcohol Use Standard Drinks/Week Comments Yes 0 (1 standard drink = 0.6 oz pur e alcohol) Comments Unknown Sex and Gender Information Value Date Recorded Sex Assigned at Not on file Legal Sex Female 12:22 PM EST Gender Identity Not on file Sexual Orientation Not on file Obstetrics History Plan of Treatment Health Maintenance Due Date Last Done Comments Hepatitis B Vaccines (1 of 3 - 19+ 3-dose series) 07/13/2006 Cervical Cancer Screening: P ap Smear 07/13/2008 HIV Screening 02/15/2022 Hepatitis C Screening 02/15/2022 Social Influencers of Health Screening 02/15/2022 COVID-19 Vaccine (1 - 2023-2 5 season) 2023 Depression Screening 03/20/2024 DTaP,Tdap,and Td Vaccines (2 - Td or Tdap) 08/12/2024 08/12/2014 Influenza Vaccine (#1) 2024 01/01/2014 HIB Vaccines Aged Out No longer eligi ble based on patient's age to complete this topic HPV Vaccines Aged Out No longer eligi ble based on patient's age to complete this topic Hepatitis A Vaccines Aged Out No long er eligible based on patient's age to complete this topic IPV Vaccines Aged Out No longer eligi ble based on patient's age to complete this topic MMR Vaccines Aged Out No longer eligi ble based on patient's age to complete this topic Meningococcal ACWY Vaccine Aged Out N o longer eligible based on patient's age to complete this topic Meningococcal B Vaccine Aged Out No l onger eligible based on patient's age to complete this topic Pneumococcal Vaccine: Pediat rics (0 to 5 Years) and At-Risk Patients (6 to 49 Years) Aged Out No longer eligi ble based on patient's age to complete this topic RSV Immunization Patients Un greta 20 months Aged Out No longer eligible b ased on patient's age to complete this topic Varicella Vaccines Aged Out No longer eligible based on patient's age to complete this topic Care Teams Senior Adults Director Relationship Specialty Start Date End Date Damion Pugh MD [address] [place] [address] PCP - General 10/13/14
--- OUTSIDE RECORDS SUMMARY | 2024-11-07 15:33 | XMS_ITS | Clinical Summary ---
Author Organization [facility] Address [address] [place] [address] Care Team Providers Care Certified Scrum Master Name Role Phone Barbie Bruno Primary Care Provider [phone] Source Comments PLEASE NOTE, if this patient is a minor, it may be UNLAWFUL to discuss sensitive information that is contained in these records (such as FAMILY PLANNING, MENTAL HEALTH or SUBSTANCE ABUSE) with the minor patient's parent or other person without the patient's specific authorization.[facility] Allergies Active Allergy Reactions Criticality Noted Date Comments Diphenhydramine Hcl Swelling 10/18/2012 Tramadol 06/04/2018 Medications albuterol sulfate 90 mcg/actuation inhalerIndication s:Asthmatic bronchitis with exacerbation, mild intermittent ([facility]) INHALE 2 PUFFS INTO THE LUNGS EVERY 4 HOURS NEEDED FOR SHORTNESS OF BREATH OR WHEEZING 8.5 g 1 0 Active folic acid (FOLVITE) 1 mg tabletIndications :Low folate Take 1 Tablet by mouth once daily 30 Tablet 2 Active ferrous sulfate 325 mg (65 mg iron) tabletIndications :Low ferritin Take 1 Tablet by mouth once daily with breakfast 90 Tablet 2 Active LO LOESTRIN FE 1 mg-10 mcg (24)/10 mcg (2) tab Take 1 Tablet by mouth once daily 2 Active riboflavin, vitamin B2, 400 mg tabIndications:Mi graine without status migrainosus, not intractable, unspecified migraine type Take 400 mg by mouth once daily 30 Tablet 2 2 Active coenzyme Q10 300 mg capIndications:Mi graine without status migrainosus, not intractable, unspecified migraine type Take 300 mg by mouth once daily 30 Capsule 2 2 Active Active Problems Problem Noted Date Diagnosed Date Low ferritin 08/04/2021 Low folate 08/04/2021 Moderate episode of recurren t major depressive disorder ([facility]) 08/04/2021 Migraine Cholecystitis Overview (10/04/2018): gallbladder Resolved Problems Problem Noted Date Diagnosed Date Resolved Date History of depression 07/15/20212021 Foot pain, bilateral 022 Immunizations Immunization Administration Dates Next Due DTP 07/15/1992, 0,04/14/1988,11/08,1987 HEP B, PED/ADOL ([id number]/RECOMBIVAX-PEDS) 06/02/2000,12/07/1999,10/27/1999 HEP B,ADULT 03/22/2019,12/09/2011 Hep A, adult 10/27/2021 Hep B (for Immunosuppressed) 3 Dose 12/09/2011 Hep B, Adult/Adol ([id number]/RECOMBIVAX-ADULT) 12/09/2011 INFLUENZA, SEASONAL, INJECTABLE 01/13/2016 MENINGOCOCCAL MPSV4 10/03/2007 MMR (MMR II/Priorix) 12/09/2011,12/09/19 12,12/03/1996,11/02 OPV, Trivalent 07/15/1992, 9,1987,09/06 PPD 03/15/2022,07/09/2018 TDAP 10/04/2018,12/26/2015,04/15/2010 Td (adult) unspecified 10/27/1999 Family History Medical History Relation Name Comments Breast cancer Mother Relation Name Status Comments Brother Alive Father Alive Mother Alive Social History Tobacco Use Types Packs/Day Years Used Date Smoking Tobacco: Never Smokeless Tobacco: Never Tobacco Cessation:Counseling Given: Yes Alcohol Use Standard Drinks/Week Comments Yes 0 (1 standard drink = 0.6 oz pur e alcohol) No worries Social Connections Answer Date Recorded Connectedness 0 01/12/2023 Financial Resource Strain Answer Date R ecorded Financial Resource Strain 0 2022 Stress Answer Date Recorded Stress 0 01/12/2023 Physical Activity Answer Date Recorded Physical Activity 0 11/10/2018 Food Insecurity Answer Date Recorded Food 0 01/12/2023 Transportation Needs Answer Date Record ed Transportation 0 01/12/2023 Housing Stability Answer Date Recorded Housing 0 01/12/2023 Safety and Environment Answer Date Sushil rded Safety 0 01/12/2023 Utilities Answer Date Recorded Utilities 0 01/12/2023 Employment Answer Date Recorded Employment 0 11/10/2018 Comments No Sex and Gender Information Value Date Recorded Sex Assigned at Female 06/05/2018 5:59 AM PDT Legal Sex Female 11:36 AM PDT Gender Identity Female 06/05/2018 5:59 AM PDT Sexual Orientation Straight 06/05/2018 5: 59 AM PDT Occupation Industry Job Start Date Job End Date [employer] Not on file Not on file Not on file Last Filed Vital Signs Vital Sign Reading Time Taken Comments Blood Pressure 112/62 01/12/2023 2:12 PM EDT Pulse 61 01/12/2023 2:12 PM EDT Temperature 36.7 C (98.1 F) 01/12/2023 2:12 PM EDT Respiratory Rate 14 01/12/2023 2:12 PM EDT Oxygen Saturation 98% 01/12/2023 2:12 PM EDT Inhaled Oxygen Concentration - - Weight 60.9 kg (134 lb 3.2 oz) 01/12/2023 2:12 P M EDT Height 162.6 cm (5' 4 ) 01/12/2023 2:12 PM EDT Body Mass Index 23.04 01/12/2023 2:12 PM EDT Plan of Treatment Health Maintenance Due Date Last Done Comments HPV Screening 1987 Tobacco Screening 1987 Annual Wellness (Adult): Indicated (All Coverage) 10/05/2019 10/04/2018 Depression Monitoring 04/14/2023 01/12/2023 , 04/06/2022, 08/04/2021, Additional history exists [id number] ( season) 2023 022, 03/20/2021 Hypertension Screening (#1) 01/12/2024 Anxiety Screening 01/13/2024 01/12/2023 Relationship Safety Screening/Counseling 01/13/2024 01/12/2023, 08/04/2021, 01/05/2021, Additional history exists Pap Smear 01/20/2024 01/19/2021 (Marilee douglas by Outside Provider), 01/19/2021 Alcohol and Drug Screen 03/20/2024 08/05/19 22, 01/05/2021, 07/04/2018 Diabetes Screening 08/03/2024 08/03/2021, 0 08/03/2021, 01/01/2021, Additional history exists Imm-Influenza (#1) 2024 01/17/2024, 1 , 01/13/2016 Cervical Cancer Screening 01/19/2026 Pap + HPV 01/19/2026 01/19/2021 Imm-DTaP/Tdap/Td (9 - Td or Tdap) 10/04/2028 10/04/2018, 12/26/2015, 04/15/2010, Additional history exists Imm-Hepatitis B Discontinued 03/22/2019, 11/19, 12/09/2011, Additional history exists Hepatitis C Screening Completed 08/03/2021 HIV Screening Completed 11/05/2021, 01/01/2021 Cervical Ablation/Cold-Knife Conization Discontinued Cervical Cryotherapy Discontinued Colposcopy Discontinued Endometrial Biopsy Discontinued Excision/Leep Discontinued HPV Genotyping Discontinued Vaginal Pap Discontinued Vulvoscopy Discontinued Procedures Procedure Name Priority Date/Time Associated Diagnosis Comments HIV 1/2 AG & AB W/RFLX (4TH GEN) Routine 11/05/2021 3:13 PM EDT Unprotected sexual intercourse HEPATITIS C AB W/RFLX HCV RNA, QT, RT PCR Routine 08/03/2021 2:39 PM EDT Screening for viral disease HGBA1C W/MPG Routine 08/03/2021 2:39 PM EDT Recent unexplained weight loss PAP W/ HPV 01/19/2021 3:00 AM EDT from Last 3 Months or Most Recently Relevant to Health Maintenance Results * HIV 1/2 AG & AB W/RFLX (4TH GEN) (11/05/2021 3:13 PM EDT) Pathologist [facility] HIV AG/AB, 4TH GEN NON-REAC TIVE NON-REAC TIVE [employer] [facility] Comment: HIV-1 antigen and HIV-1/HIV-2 antibodies were not detected. There is no laboratory evidence of HIV infection. PLEASE NOTE: This information has been disclosed to you from records whose confidentiality may be protected by state law. If your state requires such protection, then the state law prohibits you from making any further disclosure of the information without the specific written consent of the person to whom it pertains, or as otherwise permitted by law. A general authorization for the release of medical or other information is NOT sufficient for this purpose. For additional information please refer to http://[employer]/faq/MJJ701 (This link is being provided for informational/ educational purposes only.) The performance of this assay has not been clinically validated in patients less than 2 years old. Blood Blood / Unknown 11/05/2021 3 :13 PM EDT 11/05/2021 3:14 PM EDT [facility] - BLOOD DRAW Final Result [facility] [address] [address], [employer] [address] [address] * HEPATITIS C AB W/RFLX HCV RNA, QT, RT PCR (08/03/2021 2:39 PM EDT) Pathologist [facility] HEPATITIS C ANTIBODY NON-REACT JOANNA NON-REACT JOANNA [employer] SIGNAL TO CUT-OFF <0.02 <1.00 [employer] Comment: HCV antibody was non-reactive. There is no laboratory evidence of HCV infection. In most cases, no further action is required. However, if recent HCV exposure is suspected, a test for HCV RNA (test code 47321) is suggested. For additional information please refer to http://[employer]/faq/XJA75l4 (This link is being provided for informational/ educational purposes only.) Blood Blood / Unknown 08/03/2021 2 :39 PM EDT 08/03/2021 2:40 PM EDT De[facility]re LEIV[facility] - BLOOD DRAW Edited Resu lt - Final Performing Organization Address [facility] Co de Phone Number [facility] [address] [address], [employer] [address] [address] * HGBA1C W/MPG (08/03/2021 2:39 PM EDT) HEMOGLOBIN A1C 5.0 <5.7 % of total Hgb [employer] Comment: For the purpose of screening for the presence of diabetes: <5.7% Consistent with the absence of diabetes 5.7-6.4% Consistent with increased risk for diabetes (prediabetes) > or =6.5% Consistent with diabetes This assay result is consistent with a decreased risk of diabetes. Currently, no consensus exists regarding use of hemoglobin A1c for diagnosis of diabetes in children. According to [place] Diabetes Association (ADA) guidelines, hemoglobin A1c <7.0% represents optimal control in non- diabetic patients. Different metrics may apply to specific patient populations. Standards of Medical Care in Diabetes(ADA). MEAN PLASMA GLUCOSE 101 mg/dL (calc) [employer] Blood Blood / Unknown 08/03/2021 2 :39 PM EDT 08/03/2021 2:40 PM EDT Deidre Barriga [employer] LAB - BLOOD DRAW Edited Resu lt - Final Performing Organization Address [facility]/ZIP Co de Phone Number [facility] [address] [address], [employer] [address] [address] * PAP W/ HPV (01/19/2021 3:00 AM EDT) 01/19/2021 3:00 AM EDT Deidre Nithya [facility]OKE COORDINATOR-C LAB - PATHOLOGY AND CYTOLOGY AMBULATORY Final Result from Last 3 Months or Most Recently Relevant to Health Maintenance Insurance [place] [address] [employer] NET D[employer]I Care Teams Certified Scrum Master Relationship Specialty Start Date End Date Barbie Bruno PA [facility] [place] [address] PCP - General Primary Care 07/31/23
== END 2024-11-07 16:00 | disposition home or self-care (01) ==
LOC: HO.HCS 15:31
PROVIDERS: Visit Provider Nurse Practitioner Family
DX: R94.31 Abnormal electrocardiogram [ECG] [EKG] (principal); R07.89 Other chest pain; R00.2 Palpitations
CPT/HCPCS: 99203; G2211

== ENCOUNTER → 2024-11-07 15:30 | Outpatient (BNVA) | payer OTHER, SELFPAY | PROVIDERS: Visit Provider Nurse Practitioner Family | DX: R94.31 Abnormal electrocardiogram [ECG] [EKG] (principal); R07.89 Other chest pain; R00.2 Palpitations | CPT/HCPCS: 99202 ==